=== PATIENT | male | born 1940 | race Two or more races ===

== ENCOUNTER 2023-05-04 21:43 | Observation (INO) ==
[2023-05-04 22:52] LABS: BASOPHILS # (AUTO) 0.1 K/uL (0-0.2); BASOPHILS % (AUTO) 0.6 % (0.0-3.0); EOSINOPHILS # (AUTO) 0.3 K/ul (0.0-0.7); HEMATOCRIT 51.7 % (42.0-52.0); HEMOGLOBIN 16.3 g/dl (14.0-18.0); IMMATURE GRANULOCYTE # (AUTO) 0.2 (0.0-1.0); IMMATURE GRANULOCYTE % (AUTO) 1.7 % (0.0-5.0); LYMPHOCYTES # (AUTO) 1.1 K/uL (0.60-3.4); LYMPHOCYTES % (AUTO) 11.7 (10.0-50.0); MEAN CORPUSCULAR HEMOGLOBIN 30.2 pg (27.0-31.0); MEAN CORPUSCULAR HGB CONC 31.5 (31.8-35.4); MEAN CORPUSCULAR VOLUME 95.7 fl (80.0-94.0); MONOCYTES % (AUTO) 10.6 (0-10); NEUTROPHILS # (AUTO) 6.5 K/ul (2.0-6.9); NEUTROPHILS % (AUTO) 72.4 % (42.2-75.2); PLATELET COUNT 224 10^3/uL (140-440); RDW COEFFICIENT OF VARIATION 14.1 % (11.6-14.8); WHITE BLOOD COUNT 8.98 K/ul (4.2-10.2)
[2023-05-04 23:08] LABS: ALBUMIN 3.92 g/dL (3.5-5.0); ALKALINE PHOSPHATASE 145.4 U/L (56-119); ASPARTATE AMINO TRANSFERASE 43.8 U/L (17-59); BILIRUBIN,TOTAL 0.91 mg/dL (0.2-1.3); BLOOD UREA NITROGEN 15.5 mg/dL (9-20); CALCIUM 9.4 mg/dL (8.4-10.2); CARBON DIOXIDE 26.9 mmol/L (22-30.0); CHLORIDE 104.7 mmol/L (98-107); CREATININE 0.86 mg/dL (0.60-1.10); GLUCOSE 99.7 mg/dL (74-106); POTASSIUM 4.86 mmol/L (3.5-5.1); SODIUM 138.6 mmol/L (134.5-145); TOTAL PROTEIN 7.29 g/dL (6.3-8.2)
--- NOTE | 2023-05-04 23:36 | DI ---
EXAM: FRONTAL VIEW OF THE CHEST. HISTORY: Altered mental status. COMPARISON: Chest radiograph 05/01/2023. FINDINGS: Normal heart size. Unchanged opacities at the left lung base and mild blunting of the left costophrenic sulcus. Chronic coarsening of the interstitial markings appears unchanged. No visible pneumothorax Diffuse osseous demineralization. Multilevel degenerative spondylosis and degenerative changes of maida th shoulders. IMPRESSION: Stable small left pleural effusion and left basilar atelectasis versus pneumonia.
--- NOTE | 2023-05-04 23:40 | CT ---
EXAM: CT OF THE CERVICAL SPINE WITHOUT CONTRAST TECHNIQUE: Noncontrast CT of the cervical spine performed with multiplanar reformats. HISTORY: Trauma. COMPARISON: None. FINDINGS: No acute fracture or traumatic malalignment. Diffuse osseous demineralization. Diffuse idiopathic skeletal hyperostosis. Multilevel degenerative changes. Cerumen in the external auditory canals bilaterally. Small amount of secretions in the trachea. No apical pneumothorax. Emphysema and scarring in the lungs. IMPRESSION: No fracture of the cervical spine. All CT scans are performed using dose optimization techniques as appropriate to the performed exam an d include at least one of the following: Automated exposure control, adjustment of the mA and/or kV according t o size, and the use of iterative reconstruction technique.
--- NOTE | 2023-05-04 23:44 | CT ---
EXAM: CT HEAD WITHOUT CONTRAST TECHNIQUE: Noncontrast CT of the head with multiple reformats. HISTORY: Trauma. COMPARISON: CT head 05/01/2023. FINDINGS: No evidence of acute infarction, hemorrhage, or mass. Moderate brain volume loss. Mild chronic microvascular changes white matter. Atherosclerotic calcifications of the carotid siphons. No brain herniation. Patent basilar cisterns. Ventricles are proportional to brain volume. No acute osseous abnormality. Mild mucosal changes in the paranasal sinuses. Orbits are unremarkable. IMPRESSION: No acute intracranial abnormality. All CT scans are performed using dose optimization techniques as appropriate to the performed exam an d include at least one of the following: Automated exposure control, adjustment of the mA and/or kV according t o size, and the use of iterative reconstruction technique.
--- NOTE | 2023-05-05 00:05 | ED.PDOC ---
General ED Provider: Dr. NATALIE PEREIRA MD Chief Complaint: Fall Stated Complaint: HPI: Found on the floor next to his bed tonight. He also fell a few days ago and nursing staff reported he's been more confused than usual. He is less talkative and he was ambulating with his walker 3-4 weeks ago. He have been known to order pizza to his room in the recent past. No fever. No cough or vomiting. Hasn't complained of much pain. [facility] at [facility] reports a history of COPD, dementia, PVD, psoriasis, depression and venous insufficiency. He was seen on May 02 at urology office and Stiles been in place for 2-3 days. She wasn't sure if he came back from the office with the Stiles. Staff did tried to call his next of kin and no answer. He is DNR. Staff also reports noted hematuria in his catheter bag. Time Seen by Provider: 05/04/23 22:14 Mode of Arrival: Ambulance Information Source: Long-Term, EMT and Nurse Exam Limitations: Clinical condition and Dementia Seen Within Last 72 Hours for Same Complaint By: Clinic Nursing and Triage Documentation Reviewed and Agree: Yes What is Opioid Naive?: *Opioid Naive implies the patient is not already taking opioids or not chronically receiving opioids on a daily basis. *PRN dosing is not "usually" associated with tolerance. *Patients are at higher risk of over-sedation and aspiration. What is Opioid Tolerant?: *Opioid Tolerance implies less than the expected response to an opioid. *Acquired tolerance is defined by the patient taking 60mg of oral morphine daily (or equianalgesic dose of another opioid) for 1 week or more. *Often associated with chronic pain. *May take more than usual dose to achieve desired pain control. Review of Systems Review Of Systems Constitutional: Reports Malaise; Denies Chills or Fever Eyes: Denies Drainage or Decreased acuity Ears, Nose, Mouth, Throat: Denies Ear pain, Nose discharge or Throat pain Respiratory: Denies Cough or Shortness of Breath Cardiac: Denies Chest pain GI: Reports Poor appetite; Denies Abdominal pain or Vomiting : Reports Hematuria Musculoskeletal: Denies Back pain or Neck pain Skin: Reports No symptoms Neurological: Reports Cognitive dysfunction, Weakness and Other (Altered MS) [facility] Social History (Updated 05/05/23 @ 04:01 by MACARIO PERAZA) Smoking and tobacco status: Current every day smoker Physical Exam Physical Exam Appearance: Reports No pain distress and Thin; Denies Ill-appearing Ill-appearing: None Pain Distress: None Eyes: Reports DAK[place] and EOMI ENT: Reports Oropharynx normal and Dry mucosa Neck: Supple Respiratory: Reports Airway patent, Breath sounds equal, Breath sounds diminished and Crackles Cardiovascular: Reports RRR, Pulses normal and No murmur GI/: Reports Soft, Nontender, No masses, Bowel sounds normal and No Organomegaly Musculoskeletal: Reports ROM intact, No edema and No calf tenderness Skin: Reports Warm, Normal color and Pale Neurological: Reports Sensation intact, Motor intact and Alert to verbal Psychiatric: Reports Affect appropriate and Mood appropriate Interpretation EKG Interpretation EKG Interpretation By: ED Physician Time of EKG #1: 22:42 Rate: Normal Rhythm: Sinus Ectopy: None Mandan: NL Interpretation: RBBB, Abnormal EKG Radiology Interpretation Radiology Interpretation By: Radiologist Radiology Results: Negative Exam Interpreted: CXR and CT Scan Xray Comments: Neg CT scan of head and c-spine. CXR with unchanged opacity in the L lung Course Course 05/05/23 05:02 05/05/23 05:02 Orders, Labs, Meds: Lab Review 05/04/23 22:44 WBC 8.98 RBC 5.40 Hgb 16.3 Hct 51.7 MCV 95.7 H MCH 30.2 MCHC 31.5 L RDW Coeff of Sheila 14.1 Plt Count 224 Immature Gran % (Auto) 1.7 Neut % (Auto) 72.4 Lymph % (Auto) 11.7 [place] % (Auto) 10.6 H Eos % (Auto) 3.0 Baso % (Auto) 0.6 Neut # (Auto) 6.5 Lymph # (Auto) 1.1 [place] # (Auto) 1.0 Eos # (Auto) 0.3 Baso # (Auto) 0.1 Immature Gran # (Auto) 0.2 Sodium 138.6 Potassium 4.86 Chloride 104.7 Carbon Dioxide 26.9 Anion Gap 11.86 BUN 15.5 Creatinine 0.86 Estimated GFR (MDRD) 85.00 BUN/Creatinine Ratio 18.02 Glucose 99.7 Lactic Acid 2.68 H Calcium 9.40 Total Bilirubin 0.91 AST 43.8 ALT 36.0 Alkaline Phosphatase 145.4 H Total Protein 7.29 Albumin 3.92 Globulin 3.37 Albumin/Globulin Ratio 1.16 Procalcitonin 0.10 H Orders Category Date Time Status ADMIT OBSERVATION [PLACE PATIENT OBSERVATION] .TO ADMISSION 05/05/23 02:28 Active MEDSURG (MONITORED BED) EKG-(ED ONLY) Stat CARDIO 05/04/23 22:24 Completed ACTIVITY .BR with BRP CARE 05/05/23 02:30 Active INTAKE & OUTPUT Q8HR CARE 05/05/23 02:30 Active IP: INSERT SALINE LOCK ONCE CARE 05/05/23 02:30 Active TELEMETRY MONITORING TELE CARE 05/05/23 02:28 Active VITAL SIGNS Q8HR CARE 05/05/23 02:30 Completed SOFT LOW FIBER DIETARY 05/05/23 Breakfast Ordered CBC W/ AUTO DIFF DAILY@0600 LAB 05/05/23 05:02 Completed CBC W/ AUTO DIFF DAILY@0600 LAB 05/06/23 06:00 Ordered CBC W/ AUTO DIFF Stat LAB 05/04/23 22:44 Completed CMP [COMPREHENSIVE METABOLIC PANEL] Stat LAB 05/04/23 22:44 Completed COMPREHENSIVE METABOLIC PANEL DAILY@0600 LAB 05/05/23 05:02 Completed COMPREHENSIVE METABOLIC PANEL DAILY@0600 LAB 05/06/23 06:00 Ordered LACTIC ACID Stat LAB 05/04/23 22:44 Completed PROCALCITONIN Stat LAB 05/04/23 22:44 Completed Enoxaparin Sodium [Lovenox] Meds 05/05/23 09:00 Active 30 mg SUBCUT DAILY RESUSCITATION STATUS Routine OTHERS 05/05/23 02:30 Ordered CHEST, 1V AP ONLY Stat RADS 05/04/23 22:[address] CERVICAL SPINE W/O CONTRAST Stat RADS 05/04/23 22:[address] HEAD W/O CONTRAST Stat RADS 05/04/23 22:22 Completed Medications Generic Name Dose Route Start Last Admin Trade Name Freq PRN Reason Stop Dose Admin Acetaminophen 650 mg 05/05/23 02:44 Acetaminophen 325 Mg Tablet PO Q6HR PRN Pain Albuterol/Ipratropium 3 ml 05/05/23 02:34 Ipratropium/Albuterol Vial.Neb NEB Q6H PRN SOB Azithromycin 250 mg 05/05/23 03:00 05/05/23 03:20 Azithromycin 250 Mg Tablet PO 05/08/23 02:59 250 mg BEDTIME [place] Administration Bisacodyl 10 mg 05/05/23 02:34 Bisacodyl 10 Mg Supp.Rect RC PRN PRN Constipation Enoxaparin Sodium 30 mg 05/05/23 09:00 Enoxaparin Sodium 30 Mg/0.3 Ml Syr SUBCUT DAILY [place] Famotidine 20 mg 05/05/23 09:00 Famotidine 20 Mg Tablet PO DAILY [place] Lactated Ringer's 1,000 mls @ 75 mls/hr 05/05/23 02:32 05/05/23 03:20 Lactated Ringers IV 05/05/23 15:51 75 mls/hr .[id number] ONE Administration Tamsulosin HCl 0.4 mg 05/05/23 09:00 Tamsulosin Hcl 0.4 Mg Cap.Er.24h PO DAILY [place] Vital Signs: Temp Pulse Resp BP Pulse Ox 05/05/23 02:00 80 16 109/77 95 05/05/23 01:00 76 16 102/71 94 L 05/05/23 00:00 82 16 110/76 96 05/04/23 23:00 84 16 118/76 95 05/04/23 22:13 98.2 F 78 20 129/88 97 Physician Progress Note: []Patient remained calm. Call to [place] and no recent changes in medicine except for addition of Flomax early part of april. Obviously change in his alertness. He is on several drugs like paxil, Seroquel and trazadone , May need to back off the anti-psychotic Discharge Plan Discharge Patient Disposition: PLACED OBSERVATION Discharge Problem: Recurrent falls, Altered mental state Did you review [place] ARCADE ATTENDANT for ALL controlled substances?: Not Applicable ED Provider: NATALIE PEREIRA Condition: Stable Pavel Coma Scale [place] Coma Scale Response Scores: Best Response = 15 Comatose Client = 8 or Less Totally Unresponsive = 3
[2023-05-05] MEDS ORDERED: LACTATED RINGERS 1,000 ML IV ONE (02:32)
[2023-05-05] MEDS ORDERED: DUONEB NEB PRN (02:34)
[2023-05-05] MEDS ORDERED: DULCOLAX RC PRN ×2 (02:34→07:55)
[2023-05-05] MEDS ORDERED: TYLENOL PO PRN (02:44)
[2023-05-05] MEDS: ZITHROMAX PO SCH ×2 (03:20→20:44)
[2023-05-05 03:49] VITALS: BMI 23.8
[2023-05-05 05:30] LABS: BASOPHILS # (AUTO) 0.1 K/uL (0-0.2); BASOPHILS % (AUTO) 0.7 % (0.0-3.0); EOSINOPHILS # (AUTO) 0.4 K/ul (0.0-0.7); EOSINOPHILS % (AUTO) 4.6 % (0.0-7.0); IMMATURE GRANULOCYTE # (AUTO) 0.1 (0.0-1.0); IMMATURE GRANULOCYTE % (AUTO) 1.7 % (0.0-5.0); LYMPHOCYTES # (AUTO) 1.2 K/uL (0.60-3.4); LYMPHOCYTES % (AUTO) 14.5 (10.0-50.0); MEAN CORPUSCULAR HEMOGLOBIN 30.4 pg (27.0-31.0); MEAN CORPUSCULAR HGB CONC 31.9 (31.8-35.4); MEAN CORPUSCULAR VOLUME 95.3 fl (80.0-94.0); MONOCYTES % (AUTO) 12.7 (0-10); NEUTROPHILS # (AUTO) 5.3 K/ul (2.0-6.9); NEUTROPHILS % (AUTO) 65.8 % (42.2-75.2); PLATELET COUNT 211 10^3/uL (140-440); RDW COEFFICIENT OF VARIATION 14.1 % (11.6-14.8); RED BLOOD COUNT 4.93 10^6/ul (4.70-6.10); WHITE BLOOD COUNT 8.09 K/ul (4.2-10.2)
[2023-05-05 05:45] LABS: ALANINE AMINOTRANSFERASE 31.1 U/L (0-50); ALBUMIN 3.28 g/dL (3.5-5.0); ALKALINE PHOSPHATASE 123.3 U/L (56-119); ASPARTATE AMINO TRANSFERASE 32.4 U/L (17-59); BILIRUBIN,TOTAL 0.93 mg/dL (0.2-1.3); BLOOD UREA NITROGEN 14.5 mg/dL (9-20); CALCIUM 8.62 mg/dL (8.4-10.2); CARBON DIOXIDE 28.9 mmol/L (22-30.0); CREATININE 0.86 mg/dL (0.60-1.10); GLUCOSE 90.5 mg/dL (74-106); POTASSIUM 3.91 mmol/L (3.5-5.1); SODIUM 134.3 mmol/L (134.5-145); TOTAL PROTEIN 6.4 g/dL (6.3-8.2)
[2023-05-05] MEDS: PEPCID PO SCH (08:18)
[2023-05-05] MEDS: FLOMAX PO SCH (08:18)
[2023-05-05] MEDS: LOVENOX SUBCUT SCH (08:18)
[2023-05-05] MEDS ORDERED: PAXIL PO SCH ×2 (09:00)
[2023-05-05] MEDS: PAXIL PO SCH (09:03)
[2023-05-05 09:41] LABS: BILIRUBIN,URINE 1+ (NEGATIVE); CLARITY,URINE Clear (CLEAR); COLOR,URINE Amber (YELLOW); GLUCOSE, URINE (UA) Negative (NEGATIVE); KETONES,URINE Trace (NEGATIVE); LEUKOCYTE ESTERASE ,URINE Trace (NEGATIVE); NITRITE,URINE Negative (NEGATIVE); PH,URINE 5.5 (5-9); PROTEIN,URINE 3+ (NEGATIVE); URINE, BLOOD 3+ (NEGATIVE)
[2023-05-05 09:42] LABS: SQUAMOUS EPITHELIAL CELL,UR NOT PRESENT (0-5)
[2023-05-05 09:47] LABS: BACTERIA,URINE TRACE (NOT PRESENT); RENAL EPITHELIAL CELLS,URINE 0-2 (NOT PRESENT); URINE RBC, MICROSCOPIC 30-50 (0-2)
--- NOTE | 2023-05-05 12:27 | PCM ---
Date of Service Date Seen by Provider: 05/05/23 Time Seen by Provider: 09:15 Admit Day/Time Admission Date: 05/05/23 Admission Time: 02:28 Reason for Admission Chief Complaint: ALTERED MENTAL STATUS Hospital Provider Hospital Provider: Beth Stuart PA-C, [facility] History of Present Illness History of Present Illness: Patient is an 83 year [place] with pmhx of recurrent falls, venous insufficiency, psoriasis, LGEN, COPD, and dementia who presents to the ER will unwitnessed fall. Patient is wheelchair bound and has been having falls out of his wheelchair. He also has had a decline in his mentation overall. He recently had a barone catheter placed but hasn't followed up with urology outpatient yet. He was recently sent to [facility] for aggressive behaviors towards staff. Notes from the ED visit also mention he had had falls from his wheelchair as well. He was discharged home from the ER. ERP last night was concerned that his psych meds may be causing the change in his mental status. However after looking at his medication list from [place] he's been on paxil since 01/23, increased on 01/26, trazodone on 01/25, and seroquel was added in march. Flomax was recently added this past month. On my evaluation this morning patient has no complaints, states he feels great. Patient's nurse spoke via phone with his daughter and she states he hasn't been eating well, but otherwise he's been baseline. She hasn't seen his behavioral problems personally. Lactic and procal were elevated in ER. CXR showed atelectasis vs pna. CT head and c spine negative. Case Discussed With Case Discussed With: Patient's case was discussed with the ER Physicians, Dr. Arevalo. [facility] Social History Smoking and tobacco status: Current every day smoker Allergies Allergies Allergy/AdvReac Type Severity Reaction Status Date / Time No Known Allergies Allergy Verified 05/04/23 22:45 Current Medications Home Medications acetaminophen 650 mg tablet,extended release 650 mg PO Q6HR PRN pain 05/05/23 [History Confirmed 05/05/23 Last Taken Unknown] aluminum-mag hydroxide-simethicone 200 mg-200 mg-20 mg/5 mL oral susp 10 ml PO Q6H PRN indigestion/gas/heartburn 05/05/23 [History Confirmed 05/05/23 Last Taken Unknown] benztropine 0.5 mg tablet 1 mg PO BID 05/05/23 [History Confirmed 05/05/23 Last Taken 05/04/23] bisacodyl 10 mg rectal suppository 10 mg [place] PRN PRN constipation 05/05/23 [History Confirmed 05/05/23 Last Taken Unknown] cholecalciferol (vitamin D3) 25 mcg (1,000 unit) tablet 2,000 unit PO DAILY 05/05/23 [History Confirmed 05/05/23 Last Taken 05/04/23] famotidine 20 mg tablet 20 mg PO DAILY 05/05/23 [History Confirmed 05/05/23 Last Taken 05/04/23] ipratropium 0.5 mg-albuterol 3 mg (2.5 mg base)/3 mL nebulization soln 3 ml inhalation Q6H PRN shortness of breath or wheezing 05/05/23 [History Confirmed 05/05/23 Last Taken Unknown] loperamide 2 mg capsule (Anti-Diarrheal (loperamide)) 2 mg PO Q2H PRN loose stool 05/05/23 [History Confirmed 05/05/23 Last Taken Unknown] magnesium hydroxide 400 mg/5 mL oral suspension (Milk of Magnesia) 30 ml PO PRN PRN constipation 05/05/23 [History Confirmed 05/05/23 Last Taken Unknown] paroxetine HCl 10 mg tablet 10 mg PO QAM 05/05/23 [History Confirmed 05/05/23 Last Taken 05/04/23] paroxetine HCl 20 mg tablet 20 mg PO QAM 05/05/23 [History Confirmed 05/05/23 L ast Taken 05/04/23] quetiapine 25 mg tablet 25 mg PO .@HS 05/05/23 [History Confirmed 05/05/23 Last Taken 05/04/23] tamsulosin 0.4 mg capsule (Flomax) 0.4 mg PO DAILY 05/05/23 [History Confirmed 05/05/23 Last Taken 05/04/23] trazodone 50 mg tablet 50 mg PO .@HS 05/05/23 [History Confirmed 05/05/23 Last Taken 05/04/23] triamcinolone acetonide 0.1 % topical cream 1 applic topical BID 05/05/23 [Histo ry Confirmed 05/05/23 Last Taken 05/04/23] ciprofloxacin HCl 500 mg tablet (Cipro) 500 mg PO BID UTI #14 tabs 05/06/23 [Rx Last Taken Unknown] Home Acetaminophen (Acetaminophen 325 Mg Tablet) 650 mg PO Q6HR PRN PRN Reason: Pain Albuterol/Ipratropium (Ipratropium/Albuterol Vial.Neb) 3 ml NEB Q6H PRN PRN Reason: SOB Azithromycin (Azithromycin 250 Mg Tablet) 250 mg PO BEDTIME [place] Stop: 05/08/23 02:59 Last Admin: 05/05/23 20:44 Dose: 250 mg Benztropine Mesylate (Benztropine Mesylate 1 Mg Tablet) 1 mg PO BID [facility] Last Admin: 05/06/23 08:53 Dose: 1 mg Bisacodyl (Bisacodyl 10 Mg Supp.Rect) 10 mg RC DAILY PRN PRN Reason: CONSTIPATION Enoxaparin Sodium (Enoxaparin Sodium 30 Mg/0.3 Ml Syr) 30 mg SUBCUT DAILY [facility] Last Admin: 05/06/23 08:56 Dose: 30 mg Famotidine (Famotidine 20 Mg Tablet) 20 mg PO QDAC2 [facility] Last Admin: 05/06/23 05:19 Dose: 20 mg Paroxetine HCl (Paroxetine Hcl 20 Mg Tablet) 30 mg PO DAILY [facility] Last Admin: 05/06/23 08:54 Dose: 30 mg Quetiapine Fumarate (Quetiapine Fumarate 25 Mg Tablet) 25 mg PO BEDTIME [facility] Tamsulosin HCl (Tamsulosin Hcl 0.4 Mg Cap.Er.24h) 0.4 mg PO DAILY [facility] Last Admin: 05/06/23 08:53 Dose: 0.4 mg Trazodone HCl (Trazodone Hcl 50 Mg Tablet) 50 mg PO BEDTIME [facility] Discontinued Medications Bisacodyl (Bisacodyl 10 Mg Supp.Rect) 10 mg RC PRN PRN PRN Reason: Constipation Lactated Ringer's (Lactated Ringers) 1,000 mls @ 75 mls/hr IV .[id number] ONE Stop: 05/05/23 15:51 Last Infusion: 05/05/23 17:26 Dose: Infused Paroxetine HCl (Paroxetine Hcl 20 Mg Tablet) 10 mg PO DAILY [place] Paroxetine HCl (Paroxetine Hcl 20 Mg Tablet) 20 mg PO QAM [place] Opioid Naive vs. Tolerant What is Opioid Naive?: *Opioid Naive implies the patient is not already taking opioids or not chronically receiving opioids on a daily basis. *PRN dosing is not "usually" associated with tolerance. *Patients are at higher risk of over-sedation and aspiration. What is Opioid Tolerant?: *Opioid Tolerance implies less than the expected response to an opioid. *Acquired tolerance is defined by the patient taking 60mg of oral morphine daily (or equianalgesic dose of another opioid) for 1 week or more. *Often associated with chronic pain. *May take more than usual dose to achieve desired pain control. Review of Systems Constitutional: Reports Weakness Head: Reports Normocephalic and Atraumatic Neurological: Reports Other (+confused, falls from wheelchair ) Physical examination Most Recent Vital Signs: Most Recent Vital Signs Temperature 97.5 F L 05/05/23 09:39 Temperature Source Temporal Artery Scan 05/05/23 09:39 Temperature Source Infrared 05/04/23 22:13 Pulse Rate 92 05/05/23 09:39 Respiratory Rate 24 H 05/05/23 09:39 Blood Pressure 103/67 05/05/23 09:39 Blood Pressure Mean 79 05/05/23 09:39 Blood Pressure Left Arm 122/74 05/05/23 03:22 Blood Pressure Location Left Arm 05/05/23 09:39 Blood Pressure Position Supine 05/05/23 05:40 O2 Sat by Pulse Oximetry 95 05/05/23 09:39 Oxygen Delivery Method Room Air 05/05/23 12:00 Height 5 ft 8 in 05/05/23 10:09 Weight 156 lb 7 oz 05/05/23 10:09 Telemetry Type Remote Telemetry 05/05/23 07:00 Telemetry Monitoring Continues 05/05/23 07:00 Telemetry Heart Rate 82 05/05/23 07:00 EKG [place] Interval 0.14 05/05/23 07:00 EKG QRS Interval 0.06 05/05/23 07:00 Telemetry Strip Reading SR 05/05/23 07:00 Appearance: Positive No Apparent Distress and Other (+Alert, oriented to person only. ) Skin: Positive Rashes (+lesions noted to legs bilaterally, consistent with psoriasis. ) HEENT: Positive Normocephalic, Atraumatic and Oral Mucous Moist Neck: Positive Supple and Midline Trachea Chest/Lungs: Positive Clear to Auscultation Bilaterally; Negative Rales, Rhonci or Wheezes Heart: Positive RRR GI/: Positive Soft, Nontender, Bowel Sounds Normal and No Distention Extremities: Negative Edema Neurological: Positive Cranial Nerves Intact, Alert, Oriented (to person only ) and Other (+generalized weakness but no focal deficits noted. ) Psychiatric: Positive Other (+dementia, at baseline ); Negative Intact Memory, Good Short-Term Recall, Normal Judgement or Normal Insight Labs This Visit Labs This Visit: Labs This Visit 05/04/23 05/05/23 05/05/23 22:44 05:02 09:08 WBC 8.98 8.09 RBC 5.40 4.93 Hgb 16.3 15.0 Hct 51.7 47.0 MCV 95.7 H 95.3 H MCH 30.2 30.4 MCHC 31.5 L 31.9 RDW Coeff of Sheila 14.1 14.1 Plt Count 224 211 Immature Gran % (Auto) 1.7 1.7 Neut % (Auto) 72.4 65.8 Lymph % (Auto) 11.7 14.5 [place] % (Auto) 10.6 H 12.7 H Eos % (Auto) 3.0 4.6 Baso % (Auto) 0.6 0.7 Neut # (Auto) 6.5 5.3 Lymph # (Auto) 1.1 1.2 [place] # (Auto) 1.0 1.0 Eos # (Auto) 0.3 0.4 Baso # (Auto) 0.1 0.1 Immature Gran # (Auto) 0.2 0.1 Sodium 138.6 134.3 L Potassium 4.86 3.91 Chloride 104.7 102.0 Carbon Dioxide 26.9 28.9 Anion Gap 11.86 7.31 BUN 15.5 14.5 Creatinine 0.86 0.86 Estimated GFR (MDRD) 85.00 85.00 BUN/Creatinine Ratio 18.02 16.86 Glucose 99.7 90.5 Lactic Acid 2.68 H Calcium 9.40 8.62 Total Bilirubin 0.91 0.93 AST 43.8 32.4 ALT 36.0 31.1 Alkaline Phosphatase 145.4 H 123.3 H Total Protein 7.29 6.40 Albumin 3.92 3.28 L Globulin 3.37 3.12 Albumin/Globulin Ratio 1.16 1.05 Procalcitonin 0.10 H Urine Color Pallavi Urine Clarity Clear Urine pH 5.5 Ur Specific [place] >=1.030 Urine Protein 3+ H Urine Glucose (UA) Negative Urine Ketones Trace H Urine Blood 3+ H Urine Nitrite Negative Urine Bilirubin 1+ H Urine Urobilinogen 2.0 H Ur Leukocyte Esterase Trace H Urine Microscopic RBC 30-50 Urine Microscopic WBC 5-10 Ur Squamous Epith Cells Not present Ur Renal Epithelial Cell 0-2 Urine Bacteria Trace Imaging Imaging: EXAM: CT HEAD WITHOUT CONTRAST TECHNIQUE: Noncontrast CT of the head with multiple reformats. HISTORY: Trauma. COMPARISON: CT head 05/01/2023. FINDINGS: No evidence of acute infarction, hemorrhage, or mass. Moderate brain volume loss. Mild chronic microvascular changes white matter. Atherosclerotic calcifications of the carotid siphons. No brain herniation. Patent basilar cisterns. Ventricles are proportional to brain volume. No acute osseous abnormality. Mild mucosal changes in the paranasal sinuses. Orbits are unremarkable. IMPRESSION: No acute intracranial abnormality. EXAM: CT OF THE CERVICAL SPINE WITHOUT CONTRAST TECHNIQUE: Noncontrast CT of the cervical spine performed with multiplanar reformats. HISTORY: Trauma. COMPARISON: None. FINDINGS: No acute fracture or traumatic malalignment. Diffuse osseous demineralization. Diffuse idiopathic skeletal hyperostosis. Multilevel degenerative changes. Cerumen in the external auditory canals bilaterally. Small amount of secretions in the trachea. No apical pneumothorax. Emphysema and scarring in the lungs. IMPRESSION: No fracture of the cervical spine. EXAM: FRONTAL VIEW OF THE CHEST. HISTORY: Altered mental status. COMPARISON: Chest radiograph 05/01/2023. FINDINGS: Normal heart size. Unchanged opacities at the left lung base and mild blunting of the left costophrenic sulcus. Chronic coarsening of the interstitial markings appears unchanged. No visible pneumothorax Diffuse osseous demineralization. Multilevel degenerative spondylosis and degenerative changes of both shoulders. IMPRESSION: Stable small left pleural effusion and left basilar atelectasis versus pneumonia. Review Statement Review Statement: I have independently reviewed and interpreted the labs/EKGs/imaging that were ordered by the ER provider. I have reviewed all outside records that are available currently in our EMR including imaging/notes/labs from previous visits. Plan Plan: 1. AMS - Questionable reports from NH and ER on what patient's baseline is. Thought to be off from his normal demented baseline. Has been having falls out of his wheelchair. [place] to be at his baseline today. UA negative for acute UTI. CT head negative. 2. Questionable pneumonia - Pt is on zithromax, presumably for pneumonia, however unclear. CT chest ordered to evaluate for pna due to patient's elevated lactic and procal. Will adjust abx accordingly. 3. Behavior disorder - Pt had recent ER visit at [facility] for combative behavior. Pt has been cooperative here. No recent medication changes to explain changes in mentation. Cont to f/u outpatient. 4. BPH with hematuria - Barone and flomax. Unclear if hematuria was present prior to recent barone placement. However he does have an upcoming urology apt to follow up. PSA recently elevated. Dispo: Likely dc to [place] tomorrow. DVT Prophylaxis: Lovenox Time Spent: Greater than 80 minutes spent with patient, 50% of the time spent with this patient was devoted to counseling and coordination of care. [facility] minutes spent discussing advance care planning. DNR Admit to: Obs Discussed Plan of Care with Dr. Stephanie Beltran. Medications Medication Orders: Medications Ordered Category Date Time Status Acetaminophen [Tylenol] Meds 05/05/23 02:44 Active 650 mg PO Q6HR PRN Azithromycin [Zithromax] Meds 05/05/23 03:00 Active 250 mg PO BEDTIME Bisacodyl [Dulcolax] Meds 05/05/23 07:55 Active 10 mg RC DAILY PRN Enoxaparin Sodium [Lovenox] Meds 05/05/23 09:00 Active 30 mg SUBCUT DAILY Famotidine [Pepcid] Meds 05/05/23 09:00 Active 20 mg PO QDAC2 Ipratropium/Albuterol Neb [Duoneb] Meds 05/05/23 02:34 Active 3 ml NEB Q6H PRN Paroxetine HCl [Paxil] Meds 05/05/23 09:00 Active 30 mg PO DAILY Ringers Lactated Solution [Lactated Ringers] 1,000 ml Meds 05/05/23 02:32 Active IV 75 mls/hr Tamsulosin HCl [Flomax] Meds 05/05/23 09:00 Active 0.4 mg PO DAILY
--- NOTE | 2023-05-05 13:45 | CT ---
EXAM: CHEST CT WITHOUT CONTRAST HISTORY: Cough and shortness of breath. TECHNIQUE: CT acquisition of the chest from the thoracic inlet to the upper abdomen without IV contra st administration. 2-D coronal and sagittal reformatted images were obtained from the axial source i mages. IV Contrast: None. CT Dose Reduction Techniques Performed: Yes. COMPARISON: None. FINDINGS: No enlarged mediastinal, hilar, or axillary nodes are identified. Mild aneurysmal dilatation of the ascending aorta, maximum diameter 4.0 cm. Mild coronary artery calcifications. Heart size is normal . No significant pericardial fluid/thickening. No pleural fluid. Small hiatal hernia. Visualized portions of the upper abdomen included in this examination of the chest show several coars e calcifications of the pancreatic head, consistent with chronic pancreatitis. Mild haziness of the small bowel mesentery, only partially imaged, suggesting mesenteric panniculitis. Lung window images show moderate emphysema. Mild dependent atelectasis of both upper and lower lobes in the right middle lobe. No consolidation. 6 mm nodule adjacent the right minor fissure, probably a fissural lymph node of no clinical significance. No pneumothorax. Bone window images show no significant lytic or sclerotic bone lesions. IMPRESSION: 1. No acute findings in the chest. 2. Moderate emphysema. 3. Dependent atelectasis of both upper and lower lobes and the right middle lobe. 4. 4.0 cm aneurysmal dilatation of the ascending aorta. 5. Chronic pancreatitis. 6. Findings suggesting mesenteric panniculitis. All CT scans are performed using dose optimization techniques as appropriate to the performed exam an d include at least one of the following: Automated exposure control, adjustment of the mA and/or kV according t o size, and the use of iterative reconstruction technique.
[2023-05-06] MEDS: PEPCID PO SCH (05:19)
[2023-05-06 05:29] LABS: BASOPHILS # (AUTO) 0.1 K/uL (0-0.2); BASOPHILS % (AUTO) 0.6 % (0.0-3.0); EOSINOPHILS # (AUTO) 0.4 K/ul (0.0-0.7); EOSINOPHILS % (AUTO) 4.4 % (0.0-7.0); HEMATOCRIT 43.9 % (42.0-52.0); HEMOGLOBIN 14.1 g/dl (14.0-18.0); IMMATURE GRANULOCYTE # (AUTO) 0.1 (0.0-1.0); IMMATURE GRANULOCYTE % (AUTO) 1.5 % (0.0-5.0); LYMPHOCYTES # (AUTO) 1.2 K/uL (0.60-3.4); LYMPHOCYTES % (AUTO) 14.2 (10.0-50.0); MEAN CORPUSCULAR HEMOGLOBIN 30.4 pg (27.0-31.0); MEAN CORPUSCULAR HGB CONC 32.1 (31.8-35.4); MEAN CORPUSCULAR VOLUME 94.6 fl (80.0-94.0); MONOCYTES # (AUTO) 1.1 K/uL (0.4-2.0); MONOCYTES % (AUTO) 12.7 (0-10); NEUTROPHILS # (AUTO) 5.8 K/ul (2.0-6.9); NEUTROPHILS % (AUTO) 66.6 % (42.2-75.2); PLATELET COUNT 214 10^3/uL (140-440); RDW COEFFICIENT OF VARIATION 14.1 % (11.6-14.8); RED BLOOD COUNT 4.64 10^6/ul (4.70-6.10); WHITE BLOOD COUNT 8.66 K/ul (4.2-10.2)
[2023-05-06 05:43] LABS: ALANINE AMINOTRANSFERASE 30.7 U/L (0-50); ALBUMIN 3.06 g/dL (3.5-5.0); ALKALINE PHOSPHATASE 109.9 U/L (56-119); ASPARTATE AMINO TRANSFERASE 31.5 U/L (17-59); BILIRUBIN,TOTAL 0.64 mg/dL (0.2-1.3); BLOOD UREA NITROGEN 11.4 mg/dL (9-20); CALCIUM 8.47 mg/dL (8.4-10.2); CARBON DIOXIDE 24.5 mmol/L (22-30.0); CHLORIDE 104.5 mmol/L (98-107); CREATININE 0.83 mg/dL (0.60-1.10); GLUCOSE 89.9 mg/dL (74-106); POTASSIUM 3.66 mmol/L (3.5-5.1); SODIUM 133.9 mmol/L (134.5-145); TOTAL PROTEIN 5.9 g/dL (6.3-8.2)
[2023-05-06] MEDS: FLOMAX PO SCH (08:53)
[2023-05-06] MEDS: PAXIL PO SCH (08:54)
[2023-05-06] MEDS: LOVENOX SUBCUT SCH (08:56)
[2023-05-06] MEDS ORDERED: COGENTIN PO SCH (09:00)
[2023-05-06 09:54] VITALS: BP 109/72; PULSE 102; RESP 22; TEMP 97.8
--- NOTE | 2023-05-06 10:36 | DCSUM ---
Admission Date Admission Date: 05/05/23 Discharge Date Discharge Date: 05/06/23 Admission Diagnosis Admission Diagnosis: 1. AMS 2. Questionable pneumonia 3. Behavior disorder 4. BPH with hematuria Discharge Diagnosis Discharge Diagnosis: 1. AMS - resolved, at baseline 2. UTI 3. Questionable pneumonia - ruled out 4. Dementia 5. BPH with hematuria - f/u urology 6. Falls from wheelchair Hospital Provider Hospital [facility] Summary of History and Physical Summary of History and Physical: Patient is an 83 year old male from detention with pmhx of recurrent falls, venous insufficiency, psoriasis, GLEN, COPD, and dementia who presents to the ER will unwitnessed fall. Patient is wheelchair bound and has been having falls out of his wheelchair. He also has had a decline in his mentation overall. He recently had a barone catheter placed but hasn't followed up with urology outpatient yet. He was recently sent to [facility] for aggressive behaviors towards staff. Notes from the ED visit also mention he had had falls from his wheelchair as well. He was discharged home from the ER. ERP last night was concerned that his psych meds may be causing the change in his mental status. However after looking at his medication list from [place] he's been on paxil since 01/23, increased on 01/26, trazodone on 01/25, and seroquel was added in march. Flomax was recently added this past month. On my evaluation this morning patient has no complaints, states he feels great. Patient's nurse spoke via phone with his daughter and she states he hasn't been eating well, but otherwise he's been baseline. She hasn't seen his behavioral problems personally. Lactic and procal were elevated in ER. CXR showed atelectasis vs pna. CT head and c spine negative. Hospital Course Subjective: Patient CT chest did not show pneumonia. Stopped azithromycin. He has been baseline. Eating and drinking well. Mildly agitated this morning fumbling with his blankets. Labs unremarkable. Procal and lactic normal today. Vitals stable. Will discharge back to the detention on cipro for UTI, will f/u on culture and call facility if abx needs to be changed. F/u with urology as planned. Unable to reach daughter, but she called back and spoke with nurse. She's in agreement with plan of care. Appearance: Pleasant, No Apparent Distress and Alert HEENT: MMM CVS: No Murmur Abdomen: Soft, Non-Tender and No Distention Respiratory: No Accessory Muscle Use Extremities: No Edema Vital Signs: Most Recent Vital Signs Temperature 97.8 F 05/06/23 09:53 Temperature Source Tympanic 05/06/23 09:53 Temperature Source Infrared 05/04/23 22:13 Pulse Rate 102 H 05/06/23 09:53 Respiratory Rate 22 H 05/06/23 09:53 Blood Pressure 109/72 05/06/23 09:53 Blood Pressure Mean 84 05/06/23 09:53 Blood Pressure Left Arm 122/74 05/05/23 03:22 Blood Pressure Location Right Arm 05/06/23 09:53 Blood Pressure Position Sitting 05/06/23 09:53 O2 Sat by Pulse Oximetry 93 L 05/06/23 09:53 Oxygen Delivery Method Room Air 05/06/23 09:53 Height 5 ft 8 in 05/05/23 10:09 Weight 156 lb 7 oz 05/05/23 10:09 Telemetry Type Remote Telemetry 05/06/23 01:00 Telemetry Monitoring Continues 05/06/23 01:00 Telemetry Heart Rate 105 H 05/06/23 01:[address] Interval 0.19 05/06/23 01:00 EKG QRS Interval 0.11 H 05/06/23 01:00 Telemetry Strip Reading REFUSES 05/06/23 07:00 Imaging: EXAM: CT HEAD WITHOUT CONTRAST TECHNIQUE: Noncontrast CT of the head with multiple reformats. HISTORY: Trauma. COMPARISON: CT head 05/01/2023. FINDINGS: No evidence of acute infarction, hemorrhage, or mass. Moderate brain volume loss. Mild chronic microvascular changes white matter. Atherosclerotic calcifications of the carotid siphons. No brain herniation. Patent basilar cisterns. Ventricles are proportional to brain volume. No acute osseous abnormality. Mild mucosal changes in the paranasal sinuses. Orbits are unremarkable. IMPRESSION: No acute intracranial abnormality. EXAM: CT OF THE CERVICAL SPINE WITHOUT CONTRAST TECHNIQUE: Noncontrast CT of the cervical spine performed with multiplanar reformats. HISTORY: Trauma. COMPARISON: None. FINDINGS: No acute fracture or traumatic malalignment. Diffuse osseous demineralization. Diffuse idiopathic skeletal hyperostosis. Multilevel degenerative changes. Cerumen in the external auditory canals bilaterally. Small amount of secretions in the trachea. No apical pneumothorax. Emphysema and scarring in the lungs. IMPRESSION: No fracture of the cervical spine. EXAM: FRONTAL VIEW OF THE CHEST. HISTORY: Altered mental status. COMPARISON: Chest radiograph 05/01/2023. FINDINGS: Normal heart size. Unchanged opacities at the left lung base and mild blunting of the left costophrenic sulcus. Chronic coarsening of the interstitial markings appears unchanged. No visible pneumothorax Diffuse osseous demineralization. Multilevel degenerative spondylosis and degenerative changes of both shoulders. IMPRESSION: Stable small left pleural effusion and left basilar atelectasis versus pneumonia. Lab Results Last 24 Hours: 05/06/23 05:02 WBC 8.66 RBC 4.64 L Hgb 14.1 Hct 43.9 MCV 94.6 H MCH 30.4 MCHC 32.1 RDW Coeff of Sheila 14.1 Plt Count 214 Immature Gran % (Auto) 1.5 Neut % (Auto) 66.6 Lymph % (Auto) 14.2 Bledsoe % (Auto) 12.7 H Eos % (Auto) 4.4 Baso % (Auto) 0.6 Neut # (Auto) 5.8 Lymph # (Auto) 1.2 Bledsoe # (Auto) 1.1 Eos # (Auto) 0.4 Baso # (Auto) 0.1 Immature Gran # (Auto) 0.1 Sodium 133.9 L Potassium 3.66 Chloride 104.5 Carbon Dioxide 24.5 Anion Gap 8.56 BUN 11.4 Creatinine 0.83 Estimated GFR (MDRD) 88.00 BUN/Creatinine Ratio 13.73 Glucose 89.9 Lactic Acid 0.88 Calcium 8.47 Total Bilirubin 0.64 AST 31.5 ALT 30.7 Alkaline Phosphatase 109.9 Total Protein 5.90 L Albumin 3.06 L Globulin 2.84 Albumin/Globulin Ratio 1.07 Procalcitonin 0.05 Discharge Instructions Discharge Planning: Discharge Planning > [address] Stephanie Beltran. Discharge Medications: Medications at Discharge (Home Meds & RX) acetaminophen 650 mg tablet,extended release 650 mg PO Q6HR PRN pain 05/05/23 aluminum-mag hydroxide-simethicone 200 mg-200 mg-20 mg/5 mL oral susp 10 ml PO Q6H PRN indigestion/gas/heartburn 05/05/23 azithromycin 250 mg tablet 250 mg PO .@HS 05/05/23 benztropine 0.5 mg tablet 1 mg PO BID 05/05/23 bisacodyl 10 mg rectal suppository [address] PRN PRN constipation 05/05/23 cholecalciferol (vitamin D3) 25 mcg (1,000 unit) tablet 2,000 unit PO DAILY 05/05/23 famotidine 20 mg tablet 20 mg PO DAILY 05/05/23 ipratropium 0.5 mg-albuterol 3 mg (2.5 mg base)/3 mL nebulization soln 3 ml inhalation Q6H PRN shortness of breath or wheezing 05/05/23 loperamide 2 mg capsule (Anti-Diarrheal (loperamide)) 2 mg PO Q2H PRN loose stool 05/05/23 magnesium hydroxide 400 mg/5 mL oral suspension (Milk of Magnesia) 30 ml PO PRN PRN constipation 05/05/23 paroxetine HCl 10 mg tablet 10 mg PO QAM 05/05/23 paroxetine HCl 20 mg tablet 20 mg PO QAM 05/05/23 quetiapine 25 mg tablet 25 mg PO .@HS 05/05/23 tamsulosin 0.4 mg capsule (Flomax) 0.4 mg PO DAILY 05/05/23 trazodone 50 mg tablet 50 mg PO .@HS 05/05/23 triamcinolone acetonide 0.1 % topical cream 1 applic topical BID 05/05/23 Discharge Plan Discharge Discharge Orders: Discharge Patient (ONCE); Ordered 05/06/23 Ordered By: BETH STUART Activity Restrictions/Additional Instructions: DISCHARGE TO [facility] NEW MEDICATION: CIPRO DX: UTI, FALLS FROM WHEELCHAIR DIET: NORMAL ACTIVITY: TOLERATED, FALL PRECAUTIONS F/U WITH UROLOGY Instructions: Urinary Tract Infection in Men (GEN) Patient Disposition: TRANSFER SNF Prescriptions: New ciprofloxacin HCl [Cipro] 500 mg tablet 500 mg PO BID Qty: 14 0RF Continued acetaminophen 650 mg tablet extended release 650 mg PO Q6HR PRN (Reason: pain) alum-mag hydroxide-simeth 200-200-20 mg/5 mL suspension 10 ml PO Q6H PRN (Reason: indigestion/gas/heartburn) benztropine 0.5 mg tablet 1 mg PO BID bisacodyl 10 mg suppository [address] PRN PRN (Reason: constipation) Rx Instructions: insert 1 suppository rectally as needed for constipation. Administer 1 time if no results from MOM cholecalciferol (vitamin D3) 25 mcg (1,000 unit) tablet 2,000 unit PO DAILY famotidine 20 mg tablet 20 mg PO DAILY tamsulosin [Flomax] 0.4 mg capsule 0.4 mg PO DAILY ipratropium-albuterol 0.5 mg-3 mg(2.5 mg base)/3 mL solution for nebulization 3 ml inhalation Q6H PRN (Reason: shortness of breath or wheezing) loperamide [Anti-Diarrheal (loperamide)] 2 mg capsule 2 mg PO Q2H PRN (Reason: loose stool) Rx Instructions: Give 1 tab PO every 2 hrs PRN diarrhea - max 8 mg daily magnesium hydroxide [Milk of Magnesia] 400 mg/5 mL suspension 30 ml PO PRN PRN (Reason: constipation) Rx Instructions: Give 30ml PO as needed for constipation. may administer one time if no bowel movement for 3 days paroxetine HCl 10 mg tablet 10 mg PO QAM Rx Instructions: Give 1 tab PO in morning for behavioral disorder. Add with Paxil 20mg in AM paroxetine HCl 20 mg tablet 20 mg PO QAM Rx Instructions: Give 1 tab PO in morning quetiapine 25 mg tablet 25 mg PO .@HS trazodone 50 mg tablet 50 mg PO .@HS triamcinolone acetonide 0.1 % cream 1 applic TOPICAL BID Rx Instructions: Apply to arms, legs, & torso topically every AM and PM shift. Related to Psoriasis; wash skin with soap and water before application Discontinued azithromycin 250 mg tablet 250 mg PO .@HS Rx Instructions: Take 1 tab at bedtime for 4 days - start 05/02/23 End 05/07/23 Did you review [place] ROLLER STAINER for ALL controlled substances?: Not Applicable Discussed opioids are addictive and Narcan is available by prescription or from pharmacy.: No Condition: Stable
[2023-05-06] MEDS ORDERED: CIPRO PO ONE (11:18)
[2023-05-06] MEDS ORDERED: SEROQUEL PO SCH (21:00)
[2023-05-06] MEDS ORDERED: DESYREL PO SCH (21:00)
== END 2023-05-06 11:30 ==
LOC: MEDSURG B 21:43 → ED 21:43 → MEDSURG B 05-05 03:00
PROVIDERS: ADMIT Physician Assistant; ATTEND Hospitalist
DX: I73.9 Peripheral vascular disease, unspecified; F32.A Depression, unspecified; R91.8 Other nonspecific abnormal finding of lung field; F03.90 Unspecified dementia, unspecified severity, without behavioral disturbance, psychotic disturbance, mood disturbance, and anxiety; W05.0XXA Fall from non-moving wheelchair, initial encounter; F17.210 Nicotine dependence, cigarettes, uncomplicated; N40.1 Benign prostatic hyperplasia with lower urinary tract symptoms; L40.9 Psoriasis, unspecified; N39.0 Urinary tract infection, site not specified; G47.33 Obstructive sleep apnea (adult) (pediatric); R29.6 Repeated falls; Z99.3 Dependence on wheelchair; J44.9 Chronic obstructive pulmonary disease, unspecified; R41.82 Altered mental status, unspecified; Z96.0 Presence of urogenital implants

== ENCOUNTER 2023-06-27 05:10 | Inpatient (IN) ==
[2023-06-27 05:36] LABS: HEMATOCRIT 43.2 % (42.0-52.0); HEMOGLOBIN 13.4 g/dl (14.0-18.0); MEAN CORPUSCULAR HEMOGLOBIN 30.6 pg (27.0-31.0); MEAN CORPUSCULAR VOLUME 98.6 fl (80.0-94.0); PLATELET COUNT 195 10^3/uL (140-440); RDW COEFFICIENT OF VARIATION 15.5 % (11.6-14.8); RED BLOOD COUNT 4.38 10^6/ul (4.70-6.10); WHITE BLOOD COUNT 9.07 K/ul (4.2-10.2)
[2023-06-27] MEDS: ZOSYN 3.375 GM 3.375 GM in SODIUM CHLORIDE 100ML 100 ML IV ONE (05:40)
[2023-06-27] MEDS: SODIUM CHLORIDE 1,000 ML IV ONE (05:41)
--- NOTE | 2023-06-27 05:45 | DI ---
EXAM: PORTABLE CHEST HISTORY: Shortness of breath COMPARISON: Single-view chest 05/04/2023 FINDINGS / impression: The cardiomediastinal silhouette is stable. There is no consolidation or eff usion. Stable bibasilar reticular opacities. There are no acute osseous abnormalities. Degenerativ e changes noted about both shoulder girdles.
[2023-06-27 05:50] LABS: BILIRUBIN,URINE 1+ (NEGATIVE); CLARITY,URINE Clear (CLEAR); COLOR,URINE Yellow (YELLOW); GLUCOSE, URINE (UA) Negative (NEGATIVE); KETONES,URINE Trace (NEGATIVE); LEUKOCYTE ESTERASE ,URINE 3+ (NEGATIVE); NITRITE,URINE Positive (NEGATIVE); PH,URINE 5.5 (5-9); PROTEIN,URINE 2+ (NEGATIVE); URINE, BLOOD 3+ (NEGATIVE)
[2023-06-27 05:52] LABS: ALBUMIN 2.97 g/dL (3.5-5.0); ALKALINE PHOSPHATASE 95.1 U/L (56-119); ASPARTATE AMINO TRANSFERASE 115.5 U/L (17-59); BILIRUBIN,TOTAL 0.99 mg/dL (0.2-1.3); BLOOD UREA NITROGEN 21.1 mg/dL (9-20); CALCIUM 8.63 mg/dL (8.4-10.2); CHLORIDE 105.2 mmol/L (98-107); CREATININE 1.13 mg/dL (0.60-1.10); GLUCOSE 102.5 mg/dL (74-106); POTASSIUM 3.95 mmol/L (3.5-5.1); TOTAL PROTEIN 6.45 g/dL (6.3-8.2)
[2023-06-27 05:54] LABS: SQUAMOUS EPITHELIAL CELL,UR NOT PRESENT (0-5)
[2023-06-27 05:56] LABS: ANISOCYTOSIS NOT PRESENT (NOT PRESENT)
[2023-06-27 05:58] LABS: ALANINE AMINOTRANSFERASE 56.3 U/L (0-50)
[2023-06-27 06:02] LABS: TROPONIN I < 0.012 ng/ml (0.0000-0.120)
[2023-06-27] MEDS: DUONEB NEB STA (06:03)
--- NOTE | 2023-06-27 06:03 | ED.PDOC ---
General ED Provider: Dr. FE GUERRA DO Chief Complaint: Respiratory Complaint Stated Complaint: 83-year-old male presents from local intermediate with shortness of breath. Apparently the patient had a chest x-ray done yesterday that demonstrated concern for some perihilar consolidations suspicious for pneumonia. No specific treatment was instituted after this finding, and late this evening/early this morning he was noted to have increased work of breathing and audible gurgling type respirations. EMS arrived and the intermediate had him on a nasal cannula that was blowing into his mouth and his oxygen saturations were 85 to 88%. EMS placed him on a BiPAP that successfully increased his oxygen saturations. Patient apparently did try and pull at the mask quite a bit however. No other therapeutics were given in route. No reported recent illness or fever. Patient has a history of COPD, dementia, hypertension. No reported history of heart failure. Time Seen by Provider: 06/27/23 05:22 Information Source: [facility] Primary Care Provider: BERNADETTE KILGORE Nursing and Triage Documentation Reviewed and Agree: Yes What is Opioid Naive?: *Opioid Naive implies the patient is not already taking opioids or not chronically receiving opioids on a daily basis. *PRN dosing is not "usually" associated with tolerance. *Patients are at higher risk of over-sedation and aspiration. What is Opioid Tolerant?: *Opioid Tolerance implies less than the expected response to an opioid. *Acquired tolerance is defined by the patient taking 60mg of oral morphine daily (or equianalgesic dose of another opioid) for 1 week or more. *Often associated with chronic pain. *May take more than usual dose to achieve desired pain control. Review of Systems Review Of Systems Constitutional: Reports No symptoms All Other Systems: Reviewed and Negative COUNT INCLUDES THE [facility] Social History Smoking and tobacco status: Current every day smoker Physical Exam Physical Exam Appearance: Reports Ill-appearing, No pain distress, Thin and Cachectic Ill-appearing: Moderate Eyes: Reports [place], EOMI and Conjunctiva clear ENT: Reports Nose normal, Oropharynx normal (Stick yellow to white sputum in the posterior oropharynx. Suctioned by me. This improved his audible breath sounds significantly) and Dry mucosa Neck: Supple Respiratory: Reports Airway patent and Breath sounds diminished; Denies Breath sounds clear (Audible gurgling in the upper airway. Improved with suctioning. Breath sounds diminished globally otherwise) or Respirations nonlabored (Some accessory muscle use) Cardiovascular: Reports Pulses normal; Denies RRR (Tachycardia) GI/: Reports Soft and Nontender Musculoskeletal: Reports Normal strength and No edema Skin: Reports Warm, Dry and Normal color Neurological: Reports Sensation intact and Motor intact Psychiatric: Reports Anxious Interpretation EKG Interpretation EKG Interpretation By: ED Physician Time of EKG #1: 05:30 Rate: Tachy Rhythm: Sinus Ectopy: None [place]: NL ST Segment: Other (Nonspecific. No obvious elevation or depression) Interpretation: No acute ischemia readily evident Radiology Interpretation Radiology Interpretation By: Radiologist Radiology Results: Negative Exam Interpreted: Portable CXR Xray Comments: No consolidations noted. Critical Care Note Critical Care Note Total Critical Care Time (mins): 100 Comments: Critical patient due to sepsis, influenza. Constant cardiac monitoring. Multiple bedside reassessments. Following cardiac output measures. Antibiotics, fluid bolus, airway management. Independent of any procedures. Course Course 06/27/23 05:40 06/27/23 05:40 Orders, Labs, Meds: Lab Review 06/27/23 06/27/23 05:24 05:40 WBC 9.07 RBC 4.38 L Hgb 13.4 L Hct 43.2 MCV 98.6 H MCH 30.6 MCHC 31.0 L RDW Coeff of Sheila 15.5 H Plt Count 195 Neutrophils % (Manual) 56.0 Band Neutrophils % 4.0 Lymphocytes % (Manual) 26.0 Monocytes % (Manual) 13.0 H Metamyelocytes % 1.0 Anisocytosis Not present Puncture Site Rv Base Excess -0.5 O2 Saturation 42.2 L ABG pH 7.36 ABG pCO2 44.0 ABG pO2 25.0 L* ABG HCO3 24.9 ABG Total CO2 26.3 H Stefan Test Pos Hemoglobin 1.4 Oxyhemoglobin 32.5 L Carboxyhemoglobin 2.2 H Total Hemoglobin 14.3 O2 Delivery Device Venti mask Oxygen Liter Flow 14.00 FiO2 % 55.0 Sodium 137.0 Potassium 3.95 Chloride 105.2 Carbon Dioxide 23.0 Anion Gap 12.75 BUN 21.1 H Creatinine 1.13 H Estimated GFR (MDRD) 62.00 BUN/Creatinine Ratio 18.67 Glucose 102.5 Lactic Acid 3.23 H Calcium 8.63 Magnesium 2.01 Total Bilirubin 0.99 AST 115.5 H ALT 56.3 H Alkaline Phosphatase 95.1 Total Creatine Kinase 24.6 L Troponin I < 0.012 Total Protein 6.45 Albumin 2.97 L Globulin 3.48 Albumin/Globulin Ratio 0.85 Urine Color Yellow Urine Clarity Clear Urine pH 5.5 Ur Specific [place] >=1.030 Urine Protein 2+ H Urine Glucose (UA) Negative Urine Ketones Trace H Urine Blood 3+ H Urine Nitrite Positive H Urine Bilirubin 1+ H Urine Urobilinogen 1.0 H Ur Leukocyte Esterase 3+ H Urine Microscopic RBC 20-30 Urine Microscopic WBC 20-30 Ur Squamous Epith Cells Not present Urine Bacteria 4+ Influ A Molecular Assay Positive by naat H Influ B Molecular Assay Negative by naat RSV Antigen Negative by naat SARS CoV-2 RNA Rapid AMAN Negative Orders Category Date Time Status ABG DRAW REQUEST Stat CARDIO 06/27/23 05:22 Completed EKG-(ED ONLY) Stat CARDIO 06/27/23 05:22 Completed NEBULIZER TREATMENT Stat CARDIO 06/27/23 05:50 Ordered OXYGEN [ED APPLY O2] .ONCE EMERGENCY 06/27/23 05:22 Active ABG COOX Stat LAB 06/27/23 05:40 Completed BLOOD CULTURE (ED ONLY) Stat LAB 06/27/23 05:48 Received CBC W/ AUTO DIFF Stat LAB 06/27/23 05:40 Completed CMP [COMPREHENSIVE METABOLIC PANEL] Stat LAB 06/27/23 05:40 Completed COVID [SARS COV-2 RNA RAPID AMAN] Stat LAB 06/27/23 05:24 Completed CREATINE KINASE Stat LAB 06/27/23 05:40 Completed FLU A & B MOLECULAR [FLU A/B MOLECULAR] Stat LAB 06/27/23 05:24 Completed LACTIC ACID Stat LAB 06/27/23 05:40 Completed MAGNESIUM Stat LAB 06/27/23 05:40 Completed MANUAL DIFFERENTIAL Stat LAB 06/27/23 05:40 Completed RSV Stat LAB 06/27/23 05:24 Completed TROPONIN I Stat LAB 06/27/23 05:40 Completed URINALYSIS C & S IF INDICATED Stat LAB 06/27/23 05:24 Completed URINE CULTURE Routine LAB 06/27/23 05:30 Received Acetylcysteine [Mucomyst 20% Neb] Meds 06/27/23 05:49 Discontinued 200 mg NEB ONCE STA Ipratropium/Albuterol Neb [Duoneb] Meds 06/27/23 06:05 Discontinued 3 ml NEB .STK-MED ONE Ipratropium/Albuterol Neb [Duoneb] Meds 06/27/23 05:49 Discontinued 6 ml NEB ONCE STA Piperacillin Sodium/Tazobactam [Zosyn 3.375 gm] 3.375 Meds 06/27/23 05:22 Discontinued gm 0.9 % Sodium Chloride [Sodium Chloride 100Ml] 100 ml IV ONCE Sodium Chloride 0.9% [Sodium Chloride] 1,000 ml Meds 06/27/23 05:28 Discontinued IV BOLUS Vancomycin/Water For Inj (Peg) [Vancomycin 1 Gram/200 Meds 06/27/23 06:07 Active ml Premix] 1 gm in 200 ml IV ONCE CHEST, 1V AP ONLY Stat RADS 06/27/23 05:17 Completed Medications Generic Name Dose Route Start Last Admin Trade Name Freq PRN Reason Stop Dose Admin VANCOMYCIN/WATER FOR INJ (PEG) 1 gm in 200 mls @ 200 mls/hr 06/27/23 06:07 06/27/23 06:27 Vancomycin 1 Gram/200 Ml Premix IV 06/27/23 07:06 200 mls/hr ONCE ONE Administration Discontinued Medications Generic Name Dose Route Start Last Admin Trade Name Freq PRN Reason Stop Dose Admin Acetylcysteine 200 mg 06/27/23 05:49 06/27/23 06:25 Acetylcysteine 200 Mg/Ml 4 Ml Neb.Vial NEB 06/27/23 05:50 200 mg ONCE STA Administration Albuterol/Ipratropium 6 ml 06/27/23 05:49 06/27/23 06:03 Ipratropium/Albuterol Vial.Neb NEB 06/27/23 05:50 6 ml ONCE STA Administration Piperacillin Sod/Tazobactam 100 mls @ 200 mls/hr 06/27/23 05:22 06/27/23 05:40 Sod 3.375 gm/ Sodium Chloride IV 06/27/23 05:51 200 mls/hr ONCE ONE Administration Sodium Chloride 1,000 mls @ 1,000 mls/hr 06/27/23 05:28 06/27/23 05:41 Sodium Chloride IV 06/27/23 06:27 1,000 mls/hr BOLUS ONE Administration Vital Signs: Temp Pulse Resp BP Pulse Ox O2 Flow Rate 03/04/24 05:21 98.2 F 116 H 40 H 122/63 89 L 4 06/27/23 05:12 98.2 F 114 H 40 H 122/63 72 L Discharge Plan Discharge Patient Disposition: ADMITTED INPATIENT Discharge Problem: Acute and chronic respiratory failure, Influenza, Dehydration Sepsis Qualifiers: Sepsis type: sepsis due to unspecified organism Sepsis acute organ dysfunction status: with acute organ dysfunction Severe sepsis acute organ dysfunction type: unspecified Severe sepsis shock status: without septic shock Qualified Code(s): A41.9 - Sepsis, unspecified organism; R65.20 - Severe sepsis without septic shock Prescriptions: No Action acetaminophen 650 mg tablet extended release 650 mg PO Q6HR PRN (Reason: pain) alum-mag hydroxide-simeth 200-200-20 mg/5 mL suspension 10 ml PO Q6H PRN (Reason: indigestion/gas/heartburn) benztropine 0.5 mg tablet 1 mg PO BID bisacodyl 10 mg suppository 10 mg [place] PRN PRN (Reason: constipation) Rx Instructions: insert 1 suppository rectally as needed for constipation. Administer 1 time if no results from MOM cholecalciferol (vitamin D3) 25 mcg (1,000 unit) tablet 2,000 unit PO DAILY famotidine 20 mg tablet 20 mg PO DAILY tamsulosin [Flomax] 0.4 mg capsule 0.4 mg PO DAILY ipratropium-albuterol 0.5 mg-3 mg(2.5 mg base)/3 mL solution for nebulization 3 ml inhalation Q6H PRN (Reason: shortness of breath or wheezing) loperamide [Anti-Diarrheal (loperamide)] 2 mg capsule 2 mg PO Q2H PRN (Reason: loose stool) Rx Instructions: Give 1 tab PO every 2 hrs PRN diarrhea - max 8 mg daily magnesium hydroxide [Milk of Magnesia] 400 mg/5 mL suspension 30 ml PO PRN PRN (Reason: constipation) Rx Instructions: Give 30ml PO as needed for constipation. may administer one time if no bowel movement for 3 days paroxetine HCl 10 mg tablet 10 mg PO QAM Rx Instructions: Give 1 tab PO in morning for behavioral disorder. Add with Paxil 20mg in AM paroxetine HCl 20 mg tablet 20 mg PO QAM Rx Instructions: Give 1 tab PO in morning quetiapine 25 mg tablet 25 mg PO .@HS trazodone 50 mg tablet 50 mg PO .@HS triamcinolone acetonide 0.1 % cream 1 applic TOPICAL BID Rx Instructions: Apply to arms, legs, & torso topically every AM and PM shift. Related to Psoriasis; wash skin with soap and water before application ciprofloxacin HCl [Cipro] 500 mg tablet 500 mg PO BID Qty: 14 0RF tamsulosin [Flomax] 0.4 mg capsule 0.4 mg PO DAILY mirtazapine 7.5 mg tablet 7.5 mg PO QHS Did you review [place] DENTIST ATTENDANT for ALL controlled substances?: Not Applicable ED Provider: FE GUERRA Condition: Stable Physician Progress Note: 83-year-old male presents from a local intermediate with increased work of breathing. Audible gurgling breath sounds improved significantly with suctioning. Sepsis workup immediately initiated. Will exercise caution with the 30 cc/kg bolus given the patient's age. I will give fluids but I am not ordering the initial bolus per sepsis protocol due to concern for patient's safety, however I will continue with the rest of the sepsis workup. He is currently afebrile. Will obtain ABG if able. Patient seems to be quite resistant to facemasks, airway adjuncts considered include Vapotherm, BiPAP, Venturi mask. If able to maintain oxygen saturations over 90 to 92% with more conservative adjuncts such as the Venturi mask, we will continue with this, otherwise patient will likely require the BiPAP. He does have a good respiratory drive and he has had several strong coughs while in the ER. Patient will likely require hospitalization. [] 0639: Patient positive for flu. Believe this patient is more dry than he is wet. He is tolerating fluids well currently. Will continue to gently hydrate. Maintaining his airway, will discuss with the oncoming physician for admission planning Patient meets sepsis criteria due to his tachycardia, lactic acidosis, respiratory source.
[2023-06-27 06:17] LABS: MOLECULAR FLU A POSITIVE BY NAAT (NEGATIVE); MOLECULAR FLU B NEGATIVE BY NAAT (NEGATIVE)
[2023-06-27 06:18] LABS: RSV MOLECULAR NEGATIVE BY NAAT (NEGATIVE); SARS COV-2 RNA RAPID NAAT NEGATIVE (NEGATIVE)
[2023-06-27 06:21] LABS: CREATINE KINASE 24.6 U/L (55-170); MAGNESIUM 2.01 mg/dL (1.6-2.3)
[2023-06-27] MEDS: DUONEB NEB ONE (06:23)
[2023-06-27 06:25] LABS: BACTERIA,URINE 4+ (NOT PRESENT); URINE RBC, MICROSCOPIC 20-30 (0-2); URINE WBC, MICROSCOPIC 20-30 (0-2)
[2023-06-27] MEDS: MUCOMYST 20% NEB NEB STA (06:25)
[2023-06-27] MEDS: VANCOMYCIN 1 GRAM/200 ML PREMIX 1 GM/200 ML BAG IV ONE (06:27)
[2023-06-27] MEDS: TAMIFLU CAPSULE PO SCH ×2 (09:35→17:59)
[2023-06-27 09:49] LABS: VBG HCO3 24.9 (22-26); VBG OXYGEN SATURATION 42.2 (60-80); VBG PH 7.36 (7.30-7.40)
[2023-06-27] MEDS: SOLU-MEDROL 125 MG IVP ONE (09:50)
--- NOTE | 2023-06-27 11:11 | PCM ---
Date of Service Date Seen by Provider: 06/27/23 Time Seen by Provider: 08:30 Admit Day/Time Admission Date: 06/27/23 Admission Time: 07:34 Reason for Admission Chief Complaint: acute resp failure; flu A; sepsis; uti; dehydratio Hospital Provider Hospital Provider: BETH STUART PA-C, [facility] Primary Care Physician Primary Care Physician: BERNADETTE KILGORE History of Present Illness History of Present Illness: Patient is a 83 year old male from halfway with pmhx of dementia, PVD, depression, COPD, BPH with chronic barone, who presents to the ER with worsening SOB. He was noted to have a change in condition, being lethargic, and lungs had adventitious sounds. He was noted to have O2 in the 80s. In the ER he was agitated and did not want to leave oxygen on. He was found to be Flu A + and have a UTI. He was given vanc and zosyn and a liter of fluids. He will be admitted to [facility]. [facility] limited by dementia. Case Discussed With Case Discussed With: Patient's case was discussed with the ER Physicians, Dr. Romo. [facility] Social History Smoking and tobacco status: Current every day smoker Allergies Allergies Allergy/AdvReac Type Severity Reaction Status Date / Time No Known Allergies Allergy Verified 05/04/23 22:45 Current Medications Home Medications acetaminophen 650 mg tablet,extended release 650 mg PO Q6HR PRN pain 05/05/23 [History Confirmed 06/27/23 Last Taken Unknown] aluminum-mag hydroxide-simethicone 200 mg-200 mg-20 mg/5 mL oral susp 10 ml PO Q6H PRN indigestion/gas/heartburn 05/05/23 [History Confirmed 06/27/23 Last Taken Unknown] benztropine 0.5 mg tablet 1 mg PO BID 05/05/23 [History Confirmed 06/27/23 Last Taken 06/26/23 20:00 0.5 mg] bisacodyl 10 mg rectal suppository 10 mg W[place] PRN PRN constipation 05/05/23 [History Confirmed 06/27/23 Last Taken Unknown] cholecalciferol (vitamin D3) 25 mcg (1,000 unit) tablet 2,000 unit PO DAILY 05/05/23 [History Confirmed 06/27/23 Last Taken 06/26/23 08:00 2,000 unit] famotidine 20 mg tablet 20 mg PO DAILY 05/05/23 [History Confirmed 06/27/23 Last Taken 06/26/23 06:00 20 mg] ipratropium 0.5 mg-albuterol 3 mg (2.5 mg base)/3 mL nebulization soln 3 ml inhalation Q6H PRN shortness of breath or wheezing 05/05/23 [History Confirmed 06/27/23 Last Taken Unknown] loperamide 2 mg capsule (Anti-Diarrheal (loperamide)) 2 mg PO Q2H PRN loose stool 05/05/23 [History Confirmed 06/27/23 Last Taken Unknown] magnesium hydroxide 400 mg/5 mL oral suspension (Milk of Magnesia) 30 ml PO PRN PRN constipation 05/05/23 [History Confirmed 06/27/23 Last Taken Unknown] paroxetine HCl 10 mg tablet 10 mg PO QAM 05/05/23 [History Confirmed 06/27/23 Last Taken 06/26/23 08:00 10 mg] paroxetine HCl 20 mg tablet 20 mg PO QAM 05/05/23 [History Confirmed 06/27/23 Last Taken 06/26/23] quetiapine 25 mg tablet 25 mg PO .@HS 05/05/23 [History Confirmed 06/27/23 Last Taken 06/26/23 20:00 25 mg] tamsulosin 0.4 mg capsule (Flomax) 0.4 mg PO DAILY 05/05/23 [History Confirmed 06/27/23 Last Taken 05/04/23] trazodone 50 mg tablet 50 mg PO .@HS 05/05/23 [History Confirmed 06/27/23 Last Taken 05/04/23] triamcinolone acetonide 0.1 % topical cream 1 applic topical BID 05/05/23 [History Confirmed 06/27/23 Last Taken 06/26/23 20:00 1 applic] ciprofloxacin HCl 500 mg tablet (Cipro) 500 mg PO BID UTI #14 tabs 05/06/23 [Rx Confirmed 06/27/23 Last Taken Unknown] azithromycin 250 mg tablet 250 mg PO DAILY 06/27/23 [History Confirmed 06/27/23 Last Taken 06/26/23 08:00 250 mg] mirtazapine 7.5 mg tablet 7.5 mg PO QHS 06/27/23 [History Confirmed 06/27/23 Last Taken 06/26/23 20:00 7.5 mg] tamsulosin 0.4 mg capsule (Flomax) 0.4 mg PO DAILY 06/27/23 [History Confirmed 06/27/23 Last Taken 06/26/23 08:00 0.4 mg] Home Albuterol/Ipratropium (Ipratropium/Albuterol Vial.Neb) 3 ml NEB RTQ6H [facility] Last Admin: 06/27/23 13:38 Dose: Not Given Enoxaparin Sodium (Enoxaparin Sodium 30 Mg/0.3 Ml Syr) 30 mg SUBCUT DAILY [facility] Levofloxacin/Dextrose (Levaquin 750 Mg/150 Ml D5w) 750 mg in 150 mls @ 100 mls/hr IV Q48HR [facility] Stop: 06/30/23 11:29 Lactated Ringer's (Lactated Ringers) 1,000 mls @ 100 mls/hr IV .Q10H [facility] Last Admin: 06/27/23 11:14 Dose: 100 mls/hr Piperacillin Sod/Tazobactam (Sod 4.5 gm/ Sodium Chloride) 100 mls @ 200 mls/hr IV Q8HR [facility] Stop: 06/30/23 20:59 Methylprednisolone Sodium Succinate (Methylprednisolone Sod Succ/Pf 40 Mg/Ml Vial) 40 mg IVP Q8HR [facility] Oseltamivir Phosphate (Oseltamivir Phosphate 30 Mg Capsule) 30 mg PO DAILY [place] Stop: 07/01/23 09:29 Last Admin: 06/27/23 09:35 Dose: 30 mg Discontinued Medications Acetylcysteine (Acetylcysteine 200 Mg/Ml 4 Ml Neb.Vial) 200 mg NEB ONCE STA Stop: 06/27/23 05:50 Last Admin: 06/27/23 06:25 Dose: 200 mg Albuterol/Ipratropium (Ipratropium/Albuterol Vial.Neb) 6 ml NEB ONCE STA Stop: 06/27/23 05:50 Last Admin: 06/27/23 06:03 Dose: 6 ml Enoxaparin Sodium (Enoxaparin Sodium 40 Mg/0.4 Ml Syr) 40 mg SUBCUT DAILY [facility] Piperacillin Sod/Tazobactam (Sod 3.375 gm/ Sodium Chloride) 100 mls @ 200 mls/hr IV ONCE ONE Stop: 06/27/23 05:51 Last Admin: 06/27/23 05:40 Dose: 200 mls/hr Sodium Chloride (Sodium Chloride) 1,000 mls @ 1,000 mls/hr IV BOLUS ONE Stop: 06/27/23 06:27 Last Admin: 06/27/23 05:41 Dose: 1,000 mls/hr VANCOMYCIN/WATER FOR INJ (PEG) (Vancomycin 1 Gram/200 Ml Premix) 1 gm in 200 mls @ 200 mls/hr IV ONCE ONE Stop: 06/27/23 07:06 Last Admin: 06/27/23 06:27 Dose: 200 mls/hr Methylprednisolone Sodium Succinate (Methylprednisolone Sod Succ/Pf 125 Mg/2 Ml Vial) 125 mg IVP ONCE ONE Stop: 06/27/23 08:47 Last Admin: 06/27/23 09:50 Dose: 125 mg Oseltamivir Phosphate (Oseltamivir Phosphate 30 Mg Capsule) 30 mg PO BID [place] Opioid Naive vs. Tolerant Does Patient Take Opioids?: No Is Patient Opioid Naive?: Yes What is Opioid Naive?: *Opioid Naive implies the patient is not already taking opioids or not chronically receiving opioids on a daily basis. *PRN dosing is not "usually" associated with tolerance. *Patients are at higher risk of over-sedation and aspiration. Is Patient Opioid Tolerant?: No What is Opioid Tolerant?: *Opioid Tolerance implies less than the expected response to an opioid. *Acquired tolerance is defined by the patient taking 60mg of oral morphine daily (or equianalgesic dose of another opioid) for 1 week or more. *Often associated with chronic pain. *May take more than usual dose to achieve desired pain control. Review of Systems Constitutional: Reports Fatigue and Weakness Head: Reports Normocephalic and Atraumatic Cardiovascular: Denies Chest pain Respiratory: Reports Cough and Shortness of air Gastrointestinal: Denies Nausea, Vomiting or Diarrhea Neurological: Reports Weakness Physical examination Most Recent Vital Signs: Most Recent Vital Signs Temperature 98.2 F 06/27/23 05:21 Temperature Source Temporal Artery Scan 06/27/23 05:21 Pulse Rate 116 H 06/27/23 05:21 Respiratory Rate 40 H 06/27/23 05:21 Blood Pressure 122/63 06/27/23 05:21 O2 Sat by Pulse Oximetry 91 L 06/27/23 10:00 Oxygen Delivery Method Venturi Mask 06/27/23 10:00 Oxygen Flow Rate 14 06/27/23 10:00 Fraction of Inspired Oxygen (FIO2) 55 06/27/23 10:00 Height 5 ft 9 in 06/27/23 05:12 Weight 62 lb 1 oz 06/27/23 05:12 Telemetry Heart Rate 105 H 05/06/23 01:00 Appearance: Positive Ill-Appearing and Thin Skin: Positive [place], Warm and Good Turgor; Negative Rashes HEENT: Positive Normocephalic and Atraumatic; Negative Oral Mucous Moist Neck: Positive Supple and Midline Trachea Chest/Lungs: Positive Rhonci, Wheezes and Other (+increased work of breathing, on my evaluation patient is more relaxed and not bothering his oximask. ) Heart: Positive Tachycardia GI/: Positive Soft, Nontender, Bowel Sounds Normal and No Distention Extremities: Negative Edema Neurological: Positive Alert, Disorinted (+dementia at baseline ) and Other (+generalized weakness, follows basic commands ) Labs This Visit Labs This Visit: Labs This Visit 06/27/23 06/27/23 06/27/23 05:24 05:40 08:48 WBC 9.07 RBC 4.38 L Hgb 13.4 L Hct 43.2 MCV 98.6 H MCH 30.6 MCHC 31.0 L RDW Coeff of Sheila 15.5 H Plt Count 195 Neutrophils % (Manual) 56.0 Band Neutrophils % 4.0 Lymphocytes % (Manual) 26.0 Monocytes % (Manual) 13.0 H Metamyelocytes % 1.0 Anisocytosis Not present Puncture Site Cancelled Base Excess Cancelled O2 Saturation Cancelled ABG pH Cancelled ABG pCO2 Cancelled ABG pO2 Cancelled ABG HCO3 Cancelled ABG Total CO2 Cancelled Stefan Test Cancelled VBG pH VBG pCO2 VBG pO2 VBG HCO3 VBG O2 Saturation Hemoglobin Cancelled Oxyhemoglobin Cancelled Carboxyhemoglobin Cancelled Total Hemoglobin Cancelled O2 Delivery Device Cancelled Oxygen Liter Flow Cancelled FiO2 % Cancelled Sodium 137.0 Potassium 3.95 Chloride 105.2 Carbon Dioxide 23.0 Anion Gap 12.75 BUN 21.1 H Creatinine 1.13 H Estimated GFR (MDRD) 62.00 BUN/Creatinine Ratio 18.67 Glucose 102.5 Lactic Acid 3.23 H 2.30 H Calcium 8.63 Magnesium 2.01 Total Bilirubin 0.99 AST 115.5 H ALT 56.3 H Alkaline Phosphatase 95.1 Total Creatine Kinase 24.6 L Troponin I < 0.012 Total Protein 6.45 Albumin 2.97 L Globulin 3.48 Albumin/Globulin Ratio 0.85 Urine Color Yellow Urine Clarity Clear Urine pH 5.5 Ur Specific [place] >=1.030 Urine Protein 2+ H Urine Glucose (UA) Negative Urine Ketones Trace H Urine Blood 3+ H Urine Nitrite Positive H Urine Bilirubin 1+ H Urine Urobilinogen 1.0 H Ur Leukocyte Esterase 3+ H Urine Microscopic RBC 20-30 Urine Microscopic WBC 20-30 Ur Squamous Epith Cells Not present Urine Bacteria 4+ Influ A Molecular Assay Positive by naat H Influ B Molecular Assay Negative by naat RSV Antigen Negative by naat SARS CoV-2 RNA Rapid AMAN Negative 06/27/23 09:48 WBC RBC Hgb Hct MCV MCH MCHC RDW Coeff of Sheila Plt Count Neutrophils % (Manual) Band Neutrophils % Lymphocytes % (Manual) Monocytes % (Manual) Metamyelocytes % Anisocytosis Puncture Site Base Excess O2 Saturation ABG pH ABG pCO2 ABG pO2 ABG HCO3 ABG Total CO2 Stefan Test VBG pH 7.36 VBG pCO2 44 VBG pO2 25 L VBG HCO3 24.9 VBG O2 Saturation 42.2 L Hemoglobin Oxyhemoglobin Carboxyhemoglobin Total Hemoglobin O2 Delivery Device Oxygen Liter Flow FiO2 % Sodium Potassium Chloride Carbon Dioxide Anion Gap BUN Creatinine Estimated GFR (MDRD) BUN/Creatinine Ratio Glucose Lactic Acid Calcium Magnesium Total Bilirubin AST ALT Alkaline Phosphatase Total Creatine Kinase Troponin I Total Protein Albumin Globulin Albumin/Globulin Ratio Urine Color Urine Clarity Urine pH Ur Specific [place] Urine Protein Urine Glucose (UA) Urine Ketones Urine Blood Urine Nitrite Urine Bilirubin Urine Urobilinogen Ur Leukocyte Esterase Urine Microscopic RBC Urine Microscopic WBC Ur Squamous Epith Cells Urine Bacteria Influ A Molecular Assay Influ B Molecular Assay RSV Antigen SARS CoV-2 RNA Rapid AMAN Imaging Imaging: EXAM: PORTABLE CHEST HISTORY: Shortness of breath COMPARISON: Single-view chest 05/04/2023 FINDINGS / impression: The cardiomediastinal silhouette is stable. There is no consolidation or effusion. Stable bibasilar reticular opacities. There are no acute osseous abnormalities. Degenerative changes noted about both shoulder girdles. Review Statement Review Statement: I have independently reviewed and interpreted the labs/EKGs/imaging that were ordered by the ER provider. I have reviewed all outside records that are available currently in our EMR including imaging/notes/labs from previous visits. Plan Plan: 1. Acute hypoxic respiratory failure in setting of influenza A - Tamiflu, duonebs, solumedrol, RT consult, O2 wean when able. CTA ordered to r/o PE. 2. Acute metabolic encephalopathy in setting of influenza A and hypoxia - Plan as above 3. Influenza A - Plan as above. Isolation precautions. 4. UTI - Levaquin ordered based on last culture. Has barone, check w/ NH on when it was last changed. 5. Sepsis - Met criteria upon arrival, LA elevated but improved. Cont fluids, abx. 6. BPH - Cont home meds 7. Dementia - Cont home meds 8. ANN MARIE, stage I - Fluids ordered. DVT Prophylaxis: Lovenox Time Spent: Greater than 80 minutes spent with patient, 50% of the time spent with this patient was devoted to counseling and coordination of care. [facility] minutes spent discussing advance care planning with daughter, Crys. She is not POA, he doesn't have one, but she is closet relative and involved in his care. Patient was historically DNR at the halfway but she is unsure of what she would like for him. She states it is possible she would want him to be intubated/cpr if needed. She became tearful while discus sing. Plan to revisit this with her soon. Admit to: Inpatient Discussed Plan of Care with Dr. Stephanie Beltran. Update: CTA showed aspiration pna. Consulted with pharmacy. Will add zosyn to regimen. Spoke with daughter Crys for lengthy amount of time discussing his condition and plan of care. Medications Medication Orders: Medications Ordered Category Date Time Status Ipratropium/Albuterol Neb [Duoneb] Meds 06/27/23 12:00 Ordered 3 ml NEB RTQ6H Levofloxacin/D5w [Levaquin 750 mg/150 ml D5w] Meds 06/27/23 11:30 Ordered 750 mg in 150 ml IV DAILY Methylprednisolone Sod Succ/Pf [Solu-Medrol 40 mg] Meds 06/27/23 17:00 Active 40 mg IVP Q8HR Oseltamivir Phosphate Cap [Tamiflu Capsule] Meds 06/27/23 09:30 Active 30 mg PO DAILY Ringers Lactated Solution [Lactated Ringers] 1,000 ml Meds 06/27/23 11:30 Ordered IV 100 mls/hr
[2023-06-27] MEDS: LACTATED RINGERS 1,000 ML IV SCH (11:14)
--- NOTE | 2023-06-27 12:59 | CT ---
EXAM: CT ANGIOGRAM CHEST WITH INTRAVENOUS CONTRAST 06/27/2023. MULTIPLANAR REFORMATTED IMAGES OBTAIN ED. MIP AND THREE-DIMENSIONAL RECONSTRUCTED IMAGES PROVIDED HISTORY: Hypoxia and tachycardia COMPARISON: 06/27/2023, 05/05/2023 FINDINGS: The heart size appears within normal limits. There is no pericardial effusion. No patholo gic appearing mediastinal, hilar or axillary lymphadenopathy. There are no pulmonary arterial filling defects to suggest pulmonary embolus. Diffuse pulmonary emphysema. Debris layers within the dependent aspect of the trachea. There is occlusion of multiple bilateral l ower lobe airways. Severe diffuse peribronchial thickening. Patchy bibasilar pulmonary infiltrates likely due to pneumonia. This combination of findings is suggestive of aspiration. Limited views of the upper abdomen shows no acute abnormality. IMPRESSION: 1. No pulmonary embolus. 2. Debris within the trachea. Occlusion multiple bilateral lower lobe airways. This is suggestive of aspiration. 3. Bibasilar infiltrates, right greater than left. This likely represents aspiration pneumonia 4. Severe diffuse peribronchial thickening. 5. Diffuse pulmonary emphysema. All CT scans are performed using dose optimization techniques as appropriate to the performed exam an d include at least one of the following: Automated exposure control, adjustment of the mA and/or kV according t o size, and the use of iterative reconstruction technique.
[2023-06-27] MEDS: LEVAQUIN 750 MG/150 ML D5W 750 MG/150 ML BAG IV SCH (13:30)
[2023-06-27] MEDS: DUONEB NEB SCH (13:38)
[2023-06-27 14:25] VITALS: BMI 19.2
[2023-06-27] MEDS: LOVENOX SUBCUT SCH ×2 (16:05→17:58)
[2023-06-27] MEDS: SOLU-MEDROL 40 MG IVP SCH (17:57)
[2023-06-27] MEDS: ZOSYN 4.5 GM 4.5 GM in SODIUM CHLORIDE 100ML 100 ML IV SCH (20:25)
[2023-06-28 06:43] LABS: BASOPHILS % (AUTO) 0.2 % (0.0-3.0); HEMATOCRIT 35.2 % (42.0-52.0); HEMOGLOBIN 11.1 g/dl (14.0-18.0); IMMATURE GRANULOCYTE # (AUTO) 0.1 (0.0-1.0); IMMATURE GRANULOCYTE % (AUTO) 2.2 % (0.0-5.0); LYMPHOCYTES # (AUTO) 0.7 K/uL (0.60-3.4); LYMPHOCYTES % (AUTO) 12.8 (10.0-50.0); MEAN CORPUSCULAR HGB CONC 31.5 (31.8-35.4); MEAN CORPUSCULAR VOLUME 98.3 fl (80.0-94.0); MONOCYTES # (AUTO) 0.4 K/uL (0.4-2.0); MONOCYTES % (AUTO) 6.5 (0-10); NEUTROPHILS # (AUTO) 4.2 K/ul (2.0-6.9); NEUTROPHILS % (AUTO) 78.3 % (42.2-75.2); PLATELET COUNT 179 10^3/uL (140-440); RDW COEFFICIENT OF VARIATION 15.9 % (11.6-14.8); RED BLOOD COUNT 3.58 10^6/ul (4.70-6.10); WHITE BLOOD COUNT 5.38 K/ul (4.2-10.2)
[2023-06-28 06:58] LABS: ALANINE AMINOTRANSFERASE 32.3 U/L (0-50); ALBUMIN 2.36 g/dL (3.5-5.0); ALKALINE PHOSPHATASE 69.1 U/L (56-119); ASPARTATE AMINO TRANSFERASE 65.5 U/L (17-59); BILIRUBIN,TOTAL 0.78 mg/dL (0.2-1.3); BLOOD UREA NITROGEN 23.1 mg/dL (9-20); CALCIUM 7.88 mg/dL (8.4-10.2); CARBON DIOXIDE 21.1 mmol/L (22-30.0); CHLORIDE 109.9 mmol/L (98-107); CREATININE 0.94 mg/dL (0.60-1.10); GLUCOSE 133.9 mg/dL (74-106); POTASSIUM 3.71 mmol/L (3.5-5.1); SODIUM 138.9 mmol/L (134.5-145); TOTAL PROTEIN 5.47 g/dL (6.3-8.2)
[2023-06-28] MEDS: LEVAQUIN 750 MG/150 ML D5W 750 MG/150 ML BAG IV SCH (09:05)
--- NOTE | 2023-06-28 09:50 | PCM.PROG ---
Date/Time Seen Date Seen by Provider: 06/28/23 Time Seen by Provider: 08:30 Provider Provider: BETH STUART [facility]-C, [facility] Chief Complaint Chief Complaint: acute resp failure; flu A; sepsis; uti; dehydratio Subjective Subjective: Patient is doing better. Has been weaned down to 4L overnight. Feels better today. More interactive. Awaiting ST consult. Currently NPO. Objective Appearance: Positive No Apparent Distress and Ill-Appearing Chest/Lungs: Positive Symmetrical With Equal Breath Sounds, Rhonci and Wheezes Heart: Positive RRR GI/: Positive Soft, Nontender and Bowel Sounds Normal Neurological: Positive Alert, Disorinted (baseline) and Other (+generalized weakness, moves all extremities equally, follows basic commands ) Vital Signs Vital Signs: Vital Signs: Last 24 Hours 06/27/23 10:00 06/27/23 11:21 06/27/23 11:45 Temperature 98.3 F Temperature Source Temporal Artery Scan Pulse Rate 103 H Pulse Rate [Apical] Respiratory Rate 28 H Blood Pressure Blood Pressure Mean Blood Pressure Right Arm 124/73 Blood Pressure Location Blood Pressure Position Supine O2 Sat by Pulse Oximetry 91 L 94 L Oxygen Delivery Method Venturi Mask Venturi Mask Oxygen Flow Rate 14 14 Fraction of Inspired Oxygen (FIO2) 55 55 Height 5 ft 9 in Weight 130 lb 4 oz 130 lb 4 oz Telemetry Type Telemetry Monitoring Telemetry Heart Rate Telemetry SPO2 EKG DE Interval EKG QRS Interval Telemetry Strip Reading 06/27/23 13:00 06/27/23 13:59 06/27/23 14:00 Temperature 97.3 F L Temperature Source Temporal Artery Scan Pulse Rate 58 L Pulse Rate [Apical] Respiratory Rate 17 Blood Pressure 105/67 129/74 Blood Pressure Mean 92 Blood Pressure Right Arm Blood Pressure Location Right Arm Blood Pressure Position Sitting O2 Sat by Pulse Oximetry 91 L 93 L Oxygen Delivery Method Venturi Mask Venturi Mask Oxygen Flow Rate 14 Fraction of Inspired Oxygen (FIO2) 55 Height Weight Telemetry Type Remote Telemetry Telemetry Monitoring Continues Telemetry Heart Rate 64 Telemetry SPO2 92 L EKG DE Interval 0.13 EKG QRS Interval 0.07 Telemetry Strip Reading NSR 06/27/23 19:00 06/27/23 19:45 06/27/23 20:00 Temperature Temperature Source Pulse Rate Pulse Rate [Apical] 60 Respiratory Rate 26 H Blood Pressure 105/59 L Blood Pressure Mean Blood Pressure Right Arm Blood Pressure Location Blood Pressure Position O2 Sat by Pulse Oximetry 99 Oxygen Delivery Method Venturi Mask Venturi Mask Oxygen Flow Rate 14 14 Fraction of Inspired Oxygen (FIO2) 55 55 Height Weight Telemetry Type Bedside Monitor Telemetry Monitoring Continues Telemetry Heart Rate 71 Telemetry SPO2 87 L EKG DE Interval 0.18 EKG QRS Interval 0.13 H Telemetry Strip Reading SR W/ BBB 06/27/23 21:34 06/28/23 01:00 06/28/23 04:15 Temperature 97.2 F L Temperature Source Pulse Rate 59 L Pulse Rate [Apical] Respiratory Rate 25 H Blood Pressure 94/61 Blood Pressure Mean 72 Blood Pressure Right Arm Blood Pressure Location Right Arm Blood Pressure Position Supine O2 Sat by Pulse Oximetry 93 L 98 Oxygen Delivery Method Venturi Mask Nasal Cannula Oxygen Flow Rate 14 4 Fraction of Inspired Oxygen (FIO2) 55 Height Weight Telemetry Type Bedside Monitor Telemetry Monitoring Continues Telemetry Heart Rate 56 L Telemetry SPO2 99 EKG DE Interval 0.18 EKG QRS Interval 0.09 Telemetry Strip Reading SB 06/28/23 05:46 06/28/23 07:00 06/28/23 07:23 Temperature 97.3 F L Temperature Source Temporal Artery Scan Pulse Rate 51 L 57 L Pulse Rate [Apical] Respiratory Rate 17 19 Blood Pressure 114/65 Blood Pressure Mean 81 Blood Pressure Right Arm Blood Pressure Location Right Arm Blood Pressure Position Supine O2 Sat by Pulse Oximetry 100 92 L Oxygen Delivery Method Nebulizer Treatment Nasal Cannula Oxygen Flow Rate 4 Fraction of Inspired Oxygen (FIO2) Height Weight Telemetry Type Bedside Monitor Telemetry Monitoring Continues Telemetry Heart Rate 63 Telemetry SPO2 88 L EKG DE Interval 0.18 EKG QRS Interval 0.08 Telemetry Strip Reading SR 06/28/23 08:00 06/28/23 09:22 Temperature Temperature Source Pulse Rate Pulse Rate [Apical] Respiratory Rate 26 H Blood Pressure Blood Pressure Mean Blood Pressure Right Arm Blood Pressure Location Blood Pressure Position O2 Sat by Pulse Oximetry Oxygen Delivery Method Nasal Cannula Oxygen Flow Rate 4 Fraction of Inspired Oxygen (FIO2) Height 5 ft 9 in Weight 130 lb 4 oz Telemetry Type Telemetry Monitoring Telemetry Heart Rate Telemetry SPO2 EKG DE Interval EKG QRS Interval Telemetry Strip Reading Lab Results Lab Results: Lab Results: Last 24 Hours 06/28/23 06/27/23 06/27/23 06:38 11:19 09:48 WBC 5.38 RBC 3.58 L Hgb 11.1 L Hct 35.2 L D MCV 98.3 H MCH 31.0 MCHC 31.5 L RDW Coeff of Sheila 15.9 H Plt Count 179 Immature Gran % (Auto) 2.2 Neut % (Auto) 78.3 H Lymph % (Auto) 12.8 Andrew % (Auto) 6.5 Eos % (Auto) 0.0 Baso % (Auto) 0.2 Neut # (Auto) 4.2 Lymph # (Auto) 0.7 Andrew # (Auto) 0.4 Eos # (Auto) 0.0 Baso # (Auto) 0.0 Immature Gran # (Auto) 0.1 Puncture Site Base Excess O2 Saturation ABG pH ABG pCO2 ABG pO2 ABG HCO3 ABG Total CO2 Stefan Test VBG pH 7.36 VBG pCO2 44 VBG pO2 25 L VBG HCO3 24.9 VBG O2 Saturation 42.2 L Hemoglobin Oxyhemoglobin Carboxyhemoglobin Total Hemoglobin O2 Delivery Device Oxygen Liter Flow FiO2 % Sodium 138.9 Potassium 3.71 Chloride 109.9 H Carbon Dioxide 21.1 L Anion Gap 11.61 BUN 23.1 H Creatinine 0.94 Estimated GFR (MDRD) 77.00 BUN/Creatinine Ratio 24.57 Glucose 133.9 H Calcium 7.88 L Total Bilirubin 0.78 AST 65.5 H D ALT 32.3 Alkaline Phosphatase 69.1 D Total Creatine Kinase 28.1 L Total Protein 5.47 L Albumin 2.36 L Globulin 3.11 Albumin/Globulin Ratio 0.75 Procalcitonin 0.66 H 06/27/23 05:40 WBC RBC Hgb Hct MCV MCH MCHC RDW Coeff of Sheila Plt Count Immature Gran % (Auto) Neut % (Auto) Lymph % (Auto) Andrew % (Auto) Eos % (Auto) Baso % (Auto) Neut # (Auto) Lymph # (Auto) Andrew # (Auto) Eos # (Auto) Baso # (Auto) Immature Gran # (Auto) Puncture Site Cancelled Base Excess Cancelled O2 Saturation Cancelled ABG pH Cancelled ABG pCO2 Cancelled ABG pO2 Cancelled ABG HCO3 Cancelled ABG Total CO2 Cancelled Stefan Test Cancelled VBG pH VBG pCO2 VBG pO2 VBG HCO3 VBG O2 Saturation Hemoglobin Cancelled Oxyhemoglobin Cancelled Carboxyhemoglobin Cancelled Total Hemoglobin Cancelled O2 Delivery Device Cancelled Oxygen Liter Flow Cancelled FiO2 % Cancelled Sodium Potassium Chloride Carbon Dioxide Anion Gap BUN Creatinine Estimated GFR (MDRD) BUN/Creatinine Ratio Glucose Calcium Total Bilirubin AST ALT Alkaline Phosphatase Total Creatine Kinase Total Protein Albumin Globulin Albumin/Globulin Ratio Procalcitonin Additional Comments Additional Comments: I have independently reviewed and interpreted the labs/EKGs/imaging ordered during this hospital stay. I have reviewed outside records that are available in our EMR that pertain to medical stay including imaging/notes/labs from previous visits. Active Medications Active Medications: Medications Generic Name Dose Route Start Last Admin Trade Name Freq PRN Reason Stop Dose Admin Albuterol/Ipratropium 3 ml 06/27/23 12:00 06/28/23 05:35 Ipratropium/Albuterol Vial.Neb NEB 3 ml RTQ6H [place] Administration Enoxaparin Sodium 30 mg 06/27/23 14:00 06/28/23 09:05 Enoxaparin Sodium 30 Mg/0.3 Ml Syr SUBCUT 30 mg DAILY [place] Administration Lactated Ringer's 1,000 mls @ 100 mls/hr 06/27/23 11:30 06/28/23 00:02 Lactated Ringers IV 100 mls/hr .Q10H [place] Administration Piperacillin Sod/Tazobactam 100 mls @ 200 mls/hr 06/28/23 12:00 Sod 4.5 gm/ Sodium Chloride IV 07/01/23 11:59 Q6HR [place] Levofloxacin/Dextrose 750 mg in 150 mls @ 100 mls/hr 06/28/23 09:00 06/28/23 09:05 Levaquin 750 Mg/150 Ml D5w IV 07/01/23 08:59 100 mls/hr DAILY [place] Administration Methylprednisolone Sodium Succinate 40 mg 06/27/23 17:00 06/28/23 05:01 Methylprednisolone Sod Succ/Pf 40 Mg/Ml Vial IVP 40 mg Q8HR [place] Administration Oseltamivir Phosphate 30 mg 06/28/23 09:00 Oseltamivir Phosphate 30 Mg Capsule PO 07/01/23 22:00 BID [place] Plan Plan: 1. Acute hypoxic respiratory failure in setting of influenza A and aspiration pneumonia - Tamiflu, duonebs, solumedrol, zosyn, RT consult, O2 wean when able. 2. Acute metabolic encephalopathy in setting of influenza A, aspiration pneumonia, and hypoxia - Plan as above 3. Influenza A - Plan as above. Isolation precautions. 4. Aspiration pneumonia - Plan as above. NPO until ST consult. Accuchecks q4hrs while npo. Will add d5 if needed. 5. UTI - Levaquin ordered based on last culture. Has barone, check w/ NH on when it was last changed. 6. Sepsis - Met criteria upon arrival, LA elevated but improved. Cont fluids, abx. 7. BPH - Cont home meds 8. Dementia - Cont home meds 9. ANN MARIE, stage I - Improved. Fluids ordered. DVT Prophylaxis: Lovenox Review Statement Review Statement: I have personally discussed and reviewed the patient's visit/currently labs/imaging/decision making with Dr. Beltran, my supervising attending. Greater that 50 minutes spent with patient, 50% of the time spent with this patient was devoted to counseling and coordination of care.
[2023-06-28] MEDS: ZOSYN 4.5 GM 4.5 GM in SODIUM CHLORIDE 100ML 100 ML IV SCH (11:39)
[2023-06-28] MEDS: TAMIFLU CAPSULE PO SCH (11:48)
[2023-06-28] MEDS: ZYPREXA IM ONE (13:58)
[2023-06-29 05:27] LABS: BASOPHILS % (AUTO) 0.1 % (0.0-3.0); HEMATOCRIT 36.5 % (42.0-52.0); HEMOGLOBIN 11.4 g/dl (14.0-18.0); IMMATURE GRANULOCYTE # (AUTO) 0.2 (0.0-1.0); IMMATURE GRANULOCYTE % (AUTO) 2.1 % (0.0-5.0); LYMPHOCYTES # (AUTO) 0.5 K/uL (0.60-3.4); LYMPHOCYTES % (AUTO) 5.7 (10.0-50.0); MEAN CORPUSCULAR HEMOGLOBIN 30.6 pg (27.0-31.0); MEAN CORPUSCULAR HGB CONC 31.2 (31.8-35.4); MEAN CORPUSCULAR VOLUME 98.1 fl (80.0-94.0); MONOCYTES # (AUTO) 0.4 K/uL (0.4-2.0); MONOCYTES % (AUTO) 4.6 (0-10); NEUTROPHILS # (AUTO) 8.2 K/ul (2.0-6.9); NEUTROPHILS % (AUTO) 87.5 % (42.2-75.2); PLATELET COUNT 221 10^3/uL (140-440); RDW COEFFICIENT OF VARIATION 15.9 % (11.6-14.8); RED BLOOD COUNT 3.72 10^6/ul (4.70-6.10); WHITE BLOOD COUNT 9.32 K/ul (4.2-10.2)
[2023-06-29 05:46] LABS: ALANINE AMINOTRANSFERASE 29.8 U/L (0-50); ALBUMIN 2.63 g/dL (3.5-5.0); ALKALINE PHOSPHATASE 68.4 U/L (56-119); ASPARTATE AMINO TRANSFERASE 50.6 U/L (17-59); BILIRUBIN,TOTAL 0.73 mg/dL (0.2-1.3); BLOOD UREA NITROGEN 19.3 mg/dL (9-20); CALCIUM 7.8 mg/dL (8.4-10.2); CHLORIDE 110.5 mmol/L (98-107); CREATININE 0.87 mg/dL (0.60-1.10); GLUCOSE 116.9 mg/dL (74-106); POTASSIUM 3.07 mmol/L (3.5-5.1); SODIUM 139.3 mmol/L (134.5-145); TOTAL PROTEIN 5.68 g/dL (6.3-8.2)
[2023-06-29] MEDS: K-DUR PO ONE (09:27)
[2023-06-29] MEDS: FLORASTOR PO SCH (09:28)
[2023-06-29] MEDS: DOXY-100 100 MG in SODIUM CHLORIDE 100ML 100 ML IV SCH (09:28)
--- NOTE | 2023-06-29 10:45 | PCM.PROG ---
Date/Time Seen Date Seen by Provider: 06/29/23 Time Seen by Provider: 08:40 Provider Provider: [facility] Chief Complaint Chief Complaint: acute resp failure; flu A; sepsis; uti; dehydratio Subjective Subjective: Patient very confused today. Becomes tearful when asking how he is doing. He had trouble swallowing his tamiflu this morninig. ST is working with him again today. Antibiotics tailored to cultures. Respiratory status is improving. Objective Appearance: Positive No Apparent Distress and Ill-Appearing Chest/Lungs: Positive Symmetrical With Equal Breath Sounds, Rhonci (improved ) and Wheezes (improved ) Heart: Positive RRR GI/: Positive Soft, Nontender and Bowel Sounds Normal Neurological: Positive Alert, Disorinted (baseline) and Other (+generalized weakness, moves all extremities equally, follows basic commands ) Vital Signs Vital Signs: Vital Signs: Last 24 Hours 06/28/23 13:00 06/28/23 14:00 06/28/23 14:00 Temperature Temperature Source Pulse Rate 62 Pulse Rate [Apical] Respiratory Rate 24 H Blood Pressure 91/59 L Blood Pressure Mean 69 Blood Pressure Location Right Arm Blood Pressure Position Sitting O2 Sat by Pulse Oximetry 94 L 96 Oxygen Delivery Method Nasal Cannula Nasal Cannula Oxygen Flow Rate 2 4 Telemetry Type Bedside Monitor Telemetry Monitoring Continues Telemetry Heart Rate 63 Telemetry SPO2 98 EKG OH Interval 0.12 EKG QRS Interval 0.06 Telemetry Strip Reading SR 06/28/23 18:00 06/28/23 19:00 06/28/23 19:35 Temperature Temperature Source Pulse Rate 67 Pulse Rate [Apical] Respiratory Rate 25 H 22 H Blood Pressure 117/67 Blood Pressure Mean 83 Blood Pressure Location Left Arm Blood Pressure Position Sitting O2 Sat by Pulse Oximetry 98 Oxygen Delivery Method Nasal Cannula Nasal Cannula Oxygen Flow Rate 4 4 Telemetry Type Bedside Monitor Telemetry Monitoring Continues Telemetry Heart Rate 67 Telemetry SPO2 98 EKG OH Interval 0.15 EKG QRS Interval 0.09 Telemetry Strip Reading SR 06/28/23 20:00 06/28/23 21:25 06/29/23 01:00 Temperature 96.8 F L Temperature Source Axillary Pulse Rate 68 Pulse Rate [Apical] Respiratory Rate 15 Blood Pressure 84/52 L Blood Pressure Mean 62 Blood Pressure Location Left Arm Blood Pressure Position Supine O2 Sat by Pulse Oximetry 100 92 L Oxygen Delivery Method Nasal Cannula Room Air Oxygen Flow Rate 4 Telemetry Type Bedside Monitor Telemetry Monitoring Continues Telemetry Heart Rate 68 Telemetry SPO2 98 EKG OH Interval 0.16 EKG QRS Interval 0.07 Telemetry Strip Reading NSR 06/29/23 02:08 06/29/23 05:06 06/29/23 05:32 Temperature 97.9 F Temperature Source Temporal Artery Scan Pulse Rate 69 73 Pulse Rate [Apical] Respiratory Rate 16 20 Blood Pressure 111/66 97/64 Blood Pressure Mean 81 75 Blood Pressure Location Left Arm Blood Pressure Position Supine O2 Sat by Pulse Oximetry 100 98 94 L Oxygen Delivery Method Nasal Cannula Nasal Cannula Nasal Cannula Oxygen Flow Rate 4 3 3 Telemetry Type Telemetry Monitoring Telemetry Heart Rate Telemetry SPO2 EKG OH Interval EKG QRS Interval Telemetry Strip Reading 06/29/23 07:00 06/29/23 08:00 06/29/23 10:00 Temperature Temperature Source Pulse Rate Pulse Rate [Apical] 68 Respiratory Rate 20 Blood Pressure Blood Pressure Mean Blood Pressure Location Blood Pressure Position O2 Sat by Pulse Oximetry 97 Oxygen Delivery Method Nasal Cannula Nasal Cannula Oxygen Flow Rate 3 3 Telemetry Type Remote Telemetry Telemetry Monitoring Continues Telemetry Heart Rate 69 Telemetry SPO2 99 EKG OH Interval 0.16 EKG QRS Interval 0.09 Telemetry Strip Reading SR 06/29/23 10:22 Temperature 97.6 F Temperature Source Tympanic Pulse Rate 72 Pulse Rate [Apical] Respiratory Rate 20 Blood Pressure 116/71 Blood Pressure Mean 86 Blood Pressure Location Left Arm Blood Pressure Position Sitting O2 Sat by Pulse Oximetry 99 Oxygen Delivery Method Nasal Cannula Oxygen Flow Rate 4 Telemetry Type Telemetry Monitoring Telemetry Heart Rate Telemetry SPO2 EKG OH Interval EKG QRS Interval Telemetry Strip Reading Lab Results Lab Results: Lab Results: Last 24 Hours 06/29/23 05:17 WBC 9.32 RBC 3.72 L Hgb 11.4 L Hct 36.5 L MCV 98.1 H MCH 30.6 MCHC 31.2 L RDW Coeff of Sheila 15.9 H Plt Count 221 Immature Gran % (Auto) 2.1 Neut % (Auto) 87.5 H Lymph % (Auto) 5.7 L [place] % (Auto) 4.6 Eos % (Auto) 0.0 Baso % (Auto) 0.1 Neut # (Auto) 8.2 H Lymph # (Auto) 0.5 L [place] # (Auto) 0.4 Eos # (Auto) 0.0 Baso # (Auto) 0.0 Immature Gran # (Auto) 0.2 Sodium 139.3 Potassium 3.07 L Chloride 110.5 H Carbon Dioxide 24.0 Anion Gap 7.87 BUN 19.3 Creatinine 0.87 Estimated GFR (MDRD) 84.00 BUN/Creatinine Ratio 22.18 Glucose 116.9 H Calcium 7.80 L Total Bilirubin 0.73 AST 50.6 ALT 29.8 Alkaline Phosphatase 68.4 Total Protein 5.68 L Albumin 2.63 L Globulin 3.05 Albumin/Globulin Ratio 0.86 Additional Comments Additional Comments: I have independently reviewed and interpreted the labs/EKGs/imaging ordered during this hospital stay. I have reviewed outside records that are available in our EMR that pertain to medical stay including imaging/notes/labs from previous visits. Active Medications Active Medications: Medications Generic Name Dose Route Start Last Admin Trade Name Freq PRN Reason Stop Dose Admin Albuterol/Ipratropium 3 ml 06/27/23 12:00 06/29/23 05:08 Ipratropium/Albuterol Vial.Neb NEB 3 ml RTQ6H [place] Administration Enoxaparin Sodium 30 mg 06/27/23 14:00 06/29/23 08:03 Enoxaparin Sodium 30 Mg/0.3 Ml Syr SUBCUT 30 mg DAILY [place] Administration Lactated Ringer's 1,000 mls @ 100 mls/hr 06/27/23 11:30 06/29/23 07:55 Lactated Ringers IV Not Given .Q10H [place] Doxycycline Hyclate 100 mg/ 100 mls @ 50 mls/hr 06/29/23 09:00 06/29/23 09:28 Sodium Chloride IV 07/02/23 08:59 50 mls/hr Q12HR [place] Administration Ertapenem 1 gm/ Sodium 50 mls @ 100 mls/hr 06/29/23 09:00 Chloride IV 07/04/23 08:59 DAILY [place] Methylprednisolone Sodium Succinate 40 mg 06/27/23 17:00 06/29/23 05:54 Methylprednisolone Sod Succ/Pf 40 Mg/Ml Vial IVP 40 mg Q8HR [place] Administration Oseltamivir Phosphate 30 mg 06/28/23 09:00 06/29/23 08:03 Oseltamivir Phosphate 30 Mg Capsule PO 07/01/23 22:00 30 mg BID [place] Administration Saccharomyces Boulardii 250 mg 06/29/23 09:00 06/29/23 09:28 Saccharomyces Boulardii 250 Mg Capsule PO 250 mg BID [place] Administration Plan Plan: 1. Acute hypoxic respiratory failure in setting of influenza A and aspiration pneumonia - Tamiflu, duonebs, solumedrol, zosyn changed to invanz, RT consult, O2 wean when able. 2. Acute metabolic encephalopathy in setting of influenza A, aspiration pneumonia, UTI and hypoxia - Plan as above 3. Influenza A - Plan as above. Isolation precautions. 4. Aspiration pneumonia - Plan as above. Diet per ST. Cont invanz and doxy. 5. UTI due to staph aureus and ESBL+ - D/c levaquin. Start invanz and doxy. Has barone, check w/ NH on when it was last changed. 6. Sepsis - Resolved. Met criteria upon arrival, LA elevated but improved. Cont fluids, abx. 7. BPH - Cont home meds 8. Dementia - Cont home meds 9. ANN MARIE, stage I - Improved. Fluids ordered. DVT Prophylaxis: Lovenox Dispo: Potential dc in next 1-2 days. Updated daughter Crys on plan of care. Review Statement Review Statement: I have personally discussed and reviewed the patient's visit/currently l abs/imaging/decision making with Dr. Beltran, my supervising attending. Greater that 50 minutes spent with patient, 50% of the time spent with this patient was devoted to counseling and coordination of care.
[2023-06-29] MEDS: INVANZ 1 GM in SODIUM CHLORIDE 50 ML IV SCH (11:33)
[2023-06-29] MEDS: MORPHINE 2 MG/ML SYRINGE IVP ONE (14:21)
[2023-06-30 05:41] VITALS: BP 124/82; PULSE 79; RESP 20; TEMP 97
[2023-06-30 07:51] LABS: BASOPHILS % (AUTO) 0.1 % (0.0-3.0); HEMATOCRIT 35.4 % (42.0-52.0); HEMOGLOBIN 11.2 g/dl (14.0-18.0); IMMATURE GRANULOCYTE # (AUTO) 0.2 (0.0-1.0); IMMATURE GRANULOCYTE % (AUTO) 1.8 % (0.0-5.0); LYMPHOCYTES # (AUTO) 0.5 K/uL (0.60-3.4); LYMPHOCYTES % (AUTO) 4.6 (10.0-50.0); MEAN CORPUSCULAR HEMOGLOBIN 30.9 pg (27.0-31.0); MEAN CORPUSCULAR HGB CONC 31.6 (31.8-35.4); MEAN CORPUSCULAR VOLUME 97.8 fl (80.0-94.0); MONOCYTES # (AUTO) 0.5 K/uL (0.4-2.0); MONOCYTES % (AUTO) 4.9 (0-10); NEUTROPHILS # (AUTO) 9.1 K/ul (2.0-6.9); NEUTROPHILS % (AUTO) 88.6 % (42.2-75.2); PLATELET COUNT 246 10^3/uL (140-440); RDW COEFFICIENT OF VARIATION 15.6 % (11.6-14.8); RED BLOOD COUNT 3.62 10^6/ul (4.70-6.10)
[2023-06-30 08:14] LABS: ALANINE AMINOTRANSFERASE 28.5 U/L (0-50); ALBUMIN 2.39 g/dL (3.5-5.0); ALKALINE PHOSPHATASE 61.7 U/L (56-119); ASPARTATE AMINO TRANSFERASE 37.4 U/L (17-59); BILIRUBIN,TOTAL 0.71 mg/dL (0.2-1.3); CALCIUM 7.54 mg/dL (8.4-10.2); CARBON DIOXIDE 25.1 mmol/L (22-30.0); CREATININE 0.69 mg/dL (0.60-1.10); GLUCOSE 112.2 mg/dL (74-106); SODIUM 136.9 mmol/L (134.5-145); TOTAL PROTEIN 5.26 g/dL (6.3-8.2)
[2023-06-30 08:19] LABS: POTASSIUM 3.43 mmol/L (3.5-5.1)
[2023-06-30] MEDS: K-DUR PO ONE (08:33)
--- NOTE | 2023-06-30 10:26 | DCSUM ---
Admission Date Admission Date: 06/27/23 Discharge Date Discharge Date: 06/30/23 Admission Diagnosis Admission Diagnosis: 1. Acute hypoxic respiratory failure in setting of influenza A and aspiration pneumonia 2. Acute metabolic encephalopathy in setting of influenza A, aspiration pneumonia, UTI and hypoxia 3. Influenza A 4. Aspiration pneumonia 5. UTI Discharge Diagnosis Discharge Diagnosis: 1. Acute hypoxic respiratory failure in setting of influenza A and aspiration pneumonia - Improved 2. Acute metabolic encephalopathy in setting of influenza A, aspiration pneumonia, UTI and hypoxia - Improved 3. Influenza A 4. Aspiration pneumonia 5. UTI due to staph aureus and ESBL+ e coli 6. Sepsis - Resolved. 7. BPH 8. Dementia 9. ANN MARIE, stage I - resolved Hospital Provider Hospital Provider[facility] Primary Care Physician Primary Care Physician: BERNADETTE KILGORE Summary of History and Physical Summary of History and Physical: Patient is a 83 year old male from residential with pmhx of dementia, PVD, depression, COPD, BPH with chronic barone, who presents to the ER with worsening SOB. He was noted to have a change in condition, being lethargic, and lungs had adventitious sounds. He was noted to have O2 in the 80s. In the ER he was agitated and did not want to leave oxygen on. He was found to be Flu A + and have a UTI. He was given vanc and zosyn and a liter of fluids. He will be admitted to [facility] limited by dementia. Hospital Course Subjective: Patient initially was in respiratory distress, requiring 14-15L, labored breathing, very adventitious lung sounds. CTA chest revealed significant asp iration pna. He was started on zosyn and also levaquin based on last urine culture. He was also started on renally dosed tamiflu for influenza. By the following day he had been weaned down to 4L, respiratory status improved. Urine culture ended up showing ESBL positive e coli and staph aureus. Abx changed to invanz and doxycycline based on this and to also cover his aspiration pna. He was weaned to 2L O2. Barone changed on 06/28. Patient's mentation felt to be at baseline. Will discharge on tamiflu for 3 more doses, prednisone x5 days, invanz IM 1 gm for 10 days, and doxycyline PO BID for 7 days, and probiotics. Recommend continued speech therapy. Patient stable at time of discharge. Spoke with patient's daughter multiple times during hospitalization. He was initially DNR but she changed to CPR/DNI upon admission. She was contemplating changing him to full code but this was never officially changed once his respiratory status improved. Would recommend revisiting this with her again and clarifying her wishes going forward. Appearance: No Apparent Distress and Alert HEENT: MMM CVS: No Murmur Abdomen: Soft, Non-Tender and No Distention Respiratory: Other (+rhonchi and wheezing much improved, non labored breathing) Extremities: No Edema Vital Signs: Most Recent Vital Signs Temperature 97.0 F L 06/30/23 05:40 Temperature Source Temporal Artery Scan 06/30/23 05:40 Temperature Source Temporal Artery Scan 06/27/23 05:21 Pulse Rate 79 06/30/23 05:40 Respiratory Rate 20 06/30/23 05:40 Blood Pressure 124/82 06/30/23 05:40 Blood Pressure Mean 96 06/30/23 05:40 Blood Pressure Right Arm 124/73 06/27/23 11:21 Blood Pressure Location Left Arm 06/30/23 05:40 Blood Pressure Position Supine 06/30/23 05:40 O2 Sat by Pulse Oximetry 92 L 06/30/23 05:40 Oxygen Delivery Method Nasal Cannula 06/30/23 08:00 Oxygen Flow Rate 1 06/30/23 05:40 Fraction of Inspired Oxygen (FIO2) 55 06/27/23 21:34 Height 5 ft 9 in 06/28/23 09:22 Weight 130 lb 4 oz 06/28/23 09:22 Telemetry Type Remote Telemetry 06/30/23 07:00 Telemetry Monitoring Continues 06/30/23 07:00 Irregular Telemetry Rate (Approximate) 60-70 BPM 06/30/23 07:00 Telemetry Heart Rate 76 06/30/23 07:00 Telemetry SPO2 93 06/30/23 01:00 EKG TN Interval 0.12 06/30/23 07:00 EKG QRS Interval 0.11 H 06/30/23 07:00 Telemetry Strip Reading Sinus Rhythm 06/30/23 01:00 Imaging: EXAM: PORTABLE CHEST HISTORY: Shortness of breath COMPARISON: Single-view chest 05/04/2023 FINDINGS / impression: The cardiomediastinal silhouette is stable. There is no consolidation or effusion. Stable bibasilar reticular opacities. There are no acute osseous abnormalities. Degenerative changes noted about both shoulder girdles. EXAM: CT ANGIOGRAM CHEST WITH INTRAVENOUS CONTRAST 06/27/2023. MULTIPLANAR REFORMATTED IMAGES OBTAINED. MIP AND THREE-DIMENSIONAL RECONSTRUCTED IMAGES PROVIDED HISTORY: Hypoxia and tachycardia COMPARISON: 06/27/2023, 05/05/2023 FINDINGS: The heart size appears within normal limits. There is no pericardial effusion. No pathologic appearing mediastinal, hilar or axillary lymphadenopathy. There are no pulmonary arterial filling defects to suggest pulmonary embolus. Diffuse pulmonary emphysema. Debris layers within the dependent aspect of the trachea. There is occlusion of multiple bilateral lower lobe airways. Severe diffuse peribronchial thickening. Patchy bibasilar pulmonary infiltrates likely due to pneumonia. This combination of findings is suggestive of aspiration. Limited views of the upper abdomen shows no acute abnormality. IMPRESSION: 1. No pulmonary embolus. 2. Debris within the trachea. Occlusion multiple bilateral lower lobe airways. This is suggestive of aspiration. 3. Bibasilar infiltrates, right greater than left. This likely represents aspiration pneumonia 4. Severe diffuse peribronchial thickening. 5. Diffuse pulmonary emphysema. Lab Results Last 24 Hours: 06/30/23 07:47 WBC 10.30 H RBC 3.62 L Hgb 11.2 L Hct 35.4 L MCV 97.8 H MCH 30.9 MCHC 31.6 L RDW Coeff of Sheila 15.6 H Plt Count 246 Immature Gran % (Auto) 1.8 Neut % (Auto) 88.6 H Lymph % (Auto) 4.[address] [place] % (Auto) 4.9 Eos % (Auto) 0.0 Baso % (Auto) 0.1 Neut # (Auto) 9.1 H Lymph # (Auto) 0.[address] [place] # (Auto) 0.5 Eos # (Auto) 0.0 Baso # (Auto) 0.0 Immature Gran # (Auto) 0.2 Sodium 136.9 Potassium 3.43 L Chloride 109.0 H Carbon Dioxide 25.1 Anion Gap 6.23 BUN 16.0 Creatinine 0.69 Estimated GFR (MDRD) 110.00 BUN/Creatinine Ratio 23.18 Glucose 112.2 H Calcium 7.54 L Total Bilirubin 0.71 AST 37.4 ALT 28.5 Alkaline Phosphatase 61.7 Total Protein 5.26 L Albumin 2.39 L Globulin 2.87 Albumin/Globulin Ratio 0.83 Discharge Instructions Discharge Planning: Discharge Planning > [address] Stephanie Beltran. Discharge Medications: Medications at Discharge (Home Meds & RX) acetaminophen 650 mg tablet,extended release 650 mg PO Q6HR PRN pain 05/05/23 aluminum-mag hydroxide-simethicone 200 mg-200 mg-20 mg/5 mL oral susp 10 ml PO Q6H PRN indigestion/gas/heartburn 05/05/23 benztropine 0.5 mg tablet 1 mg PO BID 05/05/23 bisacodyl 10 mg rectal suppository 10 mg TN PRN PRN constipation 05/05/23 cholecalciferol (vitamin D3) 25 mcg (1,000 unit) tablet 2,000 unit PO DAILY 05/05/23 famotidine 20 mg tablet 20 mg PO DAILY 05/05/23 ipratropium 0.5 mg-albuterol 3 mg (2.5 mg base)/3 mL nebulization soln 3 ml inhalation Q6H PRN shortness of breath or wheezing 05/05/23 loperamide 2 mg capsule (Anti-Diarrheal (loperamide)) 2 mg PO Q2H PRN loose stool 05/05/23 magnesium hydroxide 400 mg/5 mL oral suspension (Milk of Magnesia) 30 ml PO PRN PRN constipation 05/05/23 paroxetine HCl 10 mg tablet 10 mg PO QAM 05/05/23 paroxetine HCl 20 mg tablet 20 mg PO QAM 05/05/23 quetiapine 25 mg tablet 25 mg PO .@HS 05/05/23 tamsulosin 0.4 mg capsule (Flomax) 0.4 mg PO DAILY 05/05/23 trazodone 50 mg tablet 50 mg PO .@HS 05/05/23 triamcinolone acetonide 0.1 % topical cream 1 applic topical BID 05/05/23 ciprofloxacin HCl 500 mg tablet (Cipro) 500 mg PO BID UTI #14 tabs 05/06/23 azithromycin 250 mg tablet 250 mg PO DAILY 06/27/23 mirtazapine 7.5 mg tablet 7.5 mg PO QHS 06/27/23 tamsulosin 0.4 mg capsule (Flomax) 0.4 mg PO DAILY 06/27/23 Discharge Plan Discharge Discharge Orders: Discharge Patient (ONCE); Ordered 06/30/23 Ordered By: BETH STUART Activity Restrictions/Additional Instructions: DISCHARGE TO SNF DIET: PER ST. RECOMMEND CONTINUING ST AT SNF ACTIVITY: TOLERATED O2 2-3 L WILL REQUIRE INVANZ IM FOR ESBL POSITIVE URINE, CONTACT PRECAUTIONS CONSIDER READDRESSING CODE STATUS WITH DAUGHTER TO CLARIFY HER WISHES Instructions: Influenza (DC) Care Plan Goals: Problem: Impaired Respiratory Status Goal: Exhibit optimal respiratory function Instructions: Activities as tolerated Apply oxygen as ordered Elevate head of bed Notify MD of increased congestion Patient Disposition: TRANSFER SNF Prescriptions: New Saccharomyces boulardii [Florastor] 250 mg Capsule 250 mg PO BID Qty: 60 0RF prednisone 20 mg tablet 20 mg PO BID 5 Days Qty: 10 0RF ertapenem 1 gram recon soln 1 g IM DAILY 10 Days Qty: 10 0RF doxycycline monohydrate 100 mg capsule 100 mg PO BID 7 Days Qty: 14 0RF oseltamivir [Tamiflu] 75 mg capsule 75 mg PO BID Qty: 3 0RF Rx Instructions: starting tonight 06/29, last dose evening of 06/30 Continued acetaminophen 650 mg tablet extended release 650 mg PO Q6HR PRN (Reason: pain) alum-mag hydroxide-simeth 200-200-20 mg/5 mL suspension 10 ml PO Q6H PRN (Reason: indigestion/gas/heartburn) benztropine 0.5 mg tablet 1 mg PO BID bisacodyl 10 mg suppository 10 mg TN PRN PRN (Reason: constipation) Rx Instructions: insert 1 suppository rectally as needed for constipation. Administer 1 time if no results from MOM cholecalciferol (vitamin D3) 25 mcg (1,000 unit) tablet 2,000 unit PO DAILY famotidine 20 mg tablet 20 mg PO DAILY ipratropium-albuterol 0.5 mg-3 mg(2.5 mg base)/3 mL solution for nebulization 3 ml inhalation Q6H PRN (Reason: shortness of breath or wheezing) loperamide [Anti-Diarrheal (loperamide)] 2 mg capsule 2 mg PO Q2H PRN (Reason: loose stool) Rx Instructions: Give 1 tab PO every 2 hrs PRN diarrhea - max 8 mg daily magnesium hydroxide [Milk of Magnesia] 400 mg/5 mL suspension 30 ml PO PRN PRN (Reason: constipation) Rx Instructions: Give 30ml PO as needed for constipation. may administer one time if no bowel movement for 3 days paroxetine HCl 10 mg tablet 10 mg PO QAM Rx Instructions: Give 1 tab PO in morning for behavioral disorder. Add with Paxil 20mg in AM quetiapine 25 mg tablet 25 mg PO .@HS triamcinolone acetonide 0.1 % cream 1 applic TOPICAL BID Rx Instructions: Apply to arms, legs, & torso topically every AM and PM shift. Related to Psoriasis; wash skin with soap and water before application tamsulosin [Flomax] 0.4 mg capsule 0.4 mg PO DAILY mirtazapine 7.5 mg tablet 7.5 mg PO QHS Discontinued azithromycin 250 mg tablet 250 mg PO DAILY Did you review [place] SERVICE ORDER CLERK for ALL controlled substances?: Not Applicable Discussed opioids are addictive and Narcan is available by prescription or from pharmacy.: No Condition: Stable
== END 2023-06-30 11:20 | DRG 189 ==
LOC: ED 05:10 → SCU 07:40
PROVIDERS: ADMIT Hospitalist; ATTEND Physician Assistant
DX: B95.61 Methicillin susceptible Staphylococcus aureus infection as the cause of diseases classified elsewhere; N17.9 Acute kidney failure, unspecified; E86.0 Dehydration; F03.90 Unspecified dementia, unspecified severity, without behavioral disturbance, psychotic disturbance, mood disturbance, and anxiety; A41.9 Sepsis, unspecified organism; J10.81 Influenza due to other identified influenza virus with encephalopathy; J96.20 Acute and chronic respiratory failure, unspecified whether with hypoxia or hypercapnia; J69.0 Pneumonitis due to inhalation of food and vomit; Z74.3 Need for continuous supervision; N39.0 Urinary tract infection, site not specified; J11.1 Influenza due to unidentified influenza virus with other respiratory manifestations; N40.0 Benign prostatic hyperplasia without lower urinary tract symptoms; Z96.0 Presence of urogenital implants; Z16.12 Extended spectrum beta lactamase (ESBL) resistance; F17.210 Nicotine dependence, cigarettes, uncomplicated; Z20.822 Contact with and (suspected) exposure to COVID-19; R06.02 Shortness of breath

== ENCOUNTER 2023-07-05 10:22 | Observation (INO) ==
--- NOTE | 2023-07-05 10:50 | ED.PDOC ---
General ED Provider: Dr. GILL FRIEND MD Chief Complaint: Non-specific Complaint Stated Complaint: 83 year old male from longterm with pmhx of dementia, PVD, depression, COPD, BPH with chronic barone, who presents to the ER with failure to thrive. Patient was recently recently discharged from the hospital for acute respiratory failure secondary to influenza type B. Patient respiratory status had improved and [facility] the facility patient has not been eating or drinking and refusing to take his medications lungs sounded congested so has brought him back to the emergency room. Paperwork showing patient is a DNR comfort focused treatment. Time Seen by Provider: 07/05/23 10:35 Information Source: Patient Primary Care Provider: BERNADTETE KILGORE Nursing and Triage Documentation Reviewed and Agree: Yes What is Opioid Naive?: *Opioid Naive implies the patient is not already taking opioids or not chronically receiving opioids on a daily basis. *PRN dosing is not "usually" associated with tolerance. *Patients are at higher risk of over-sedation and aspiration. What is Opioid Tolerant?: *Opioid Tolerance implies less than the expected response to an opioid. *Acquired tolerance is defined by the patient taking 60mg of oral morphine daily (or equianalgesic dose of another opioid) for 1 week or more. *Often associated with chronic pain. *May take more than usual dose to achieve desired pain control. Review of Systems Review Of Systems Constitutional: Reports Weakness All Other Systems: Reviewed and Negative [facility] Medical History (Updated 07/05/23 @ 12:06 by GILL FRIEND MD) Barone catheter in place Z97.8 - Presence of other specified devices (ICD-10) Family History (Updated 06/27/23 @ 16:05 by ESTER TEMPLE RN) Unknown No known health problems Social History Smoking and tobacco status: Current every day smoker Physical Exam Physical Exam Appearance: Reports Thin and Cachectic Ill-appearing: Mild Pain Distress: None Eyes: Reports DAKOTA and EOMI ENT: Reports Ears normal Neck: Supple Respiratory: Reports Airway patent (Mouth breather, very dry mucous membranes), Breath sounds diminished, Rhonchi and Wheezes Cardiovascular: Reports RRR, Pulses normal and No rub GI/: Reports Soft, Nontender, No masses and Bowel sounds normal Musculoskeletal: Reports Other (Generalized muscle wasting/stiffness) Skin: Reports Warm and Dry Neurological: Reports Other (Patient is nonverbal, unable to perform neurological exam) Interpretation EKG Interpretation EKG Interpretation By: ED Physician Time of EKG #1: 10:59 Rate: Normal Rhythm: Sinus Ectopy: None [place]: NL Interpretation: RBBB, no sings of ischemia Critical Care Note Critical Care Note Total Critical Care Time (mins): 30 Course Course 07/05/23 10:52 07/05/23 10:52 Orders, Labs, Meds: Lab Review 07/05/23 07/05/23 10:43 10:52 WBC 12.15 H RBC 5.13 Hgb 15.6 Hct 49.2 MCV 95.9 H MCH 30.4 MCHC 31.7 L RDW Coeff of Sheila 15.2 H Plt Count 347 Neutrophils % (Manual) 79.0 H Lymphocytes % (Manual) 10.0 Monocytes % (Manual) 11.0 H Reactive Lymphocytes 7.0 H Anisocytosis Not present Sodium 140.8 Potassium 3.88 Chloride 107.0 Carbon Dioxide 28.2 Anion Gap 9.48 BUN 18.7 Creatinine 0.84 Estimated GFR (MDRD) 87.00 BUN/Creatinine Ratio 22.26 Glucose 76.7 Lactic Acid 1.42 Calcium 8.82 Total Bilirubin 1.21 AST 31.2 ALT 24.0 Alkaline Phosphatase 93.5 Troponin I < 0.012 NT-Pro-B Natriuret Pep 1430 H Total Protein 6.59 Albumin 3.27 L Globulin 3.32 Albumin/Globulin Ratio 0.98 Urine Color Pallavi Urine Clarity Cloudy Urine pH 5.5 Ur Specific [place] >=1.030 Urine Protein 2+ H Urine Glucose (UA) Negative Urine Ketones 2+ H Urine Blood 3+ H Urine Nitrite Negative Urine Bilirubin 3+ H Urine Urobilinogen 1.0 H Ur Leukocyte Esterase Trace H Urine Microscopic RBC Tntc Urine Microscopic WBC 5-10 Ur Squamous Epith Cells 0-2 Urine Bacteria 1+ Urine Mucus Trace SARS CoV-2 RNA Rapid AMAN Negative Orders Category Date Time Status ADMIT OBSERVATION [PLACE PATIENT OBSERVATION] .TO ADMISSION 07/05/23 12:07 Ordered MEDSURG (MONITORED BED) EKG-(ED ONLY) Stat CARDIO 07/05/23 10:38 Completed TELEMETRY MONITORING TELE CARE 07/05/23 12:07 Ordered Monitor [ED BRICK POINTER APPLIED] .ONCE EMERGENCY 07/05/23 10:38 Active Saline Lock [ED IV/MEDIPORT/POWERPORT] .ONCE EMERGENCY 07/05/23 10:38 Active BLOOD CULTURE Stat LAB 07/05/23 11:19 Received CBC W/ AUTO DIFF Stat LAB 07/05/23 10:52 Completed CMP [COMPREHENSIVE METABOLIC PANEL] Stat LAB 07/05/23 10:52 Completed COVID [SARS COV-2 RNA RAPID AMAN] Stat LAB 07/05/23 10:43 Completed LACTIC ACID Stat LAB 07/05/23 10:52 Completed MANUAL DIFFERENTIAL Stat LAB 07/05/23 10:52 Completed NT-PROBNP(ED) Stat LAB 07/05/23 10:52 Completed TROPONIN I Stat LAB 07/05/23 10:52 Completed TROPONIN I Stat LAB 07/05/23 11:06 Ordered URINALYSIS C & S IF INDICATED Stat LAB 07/05/23 10:43 Completed URINE CULTURE Stat LAB 07/05/23 10:43 Received 0.9 % Sodium Chloride [Saline Flush] Meds 07/05/23 10:38 Active 1 syr IVF PRN PRN Ceftriaxone/D5w 1 gm Premix [Rocephin 1 gm/50 ml D5w] Meds 07/05/23 11:24 Discontinued 1 gm in 50 ml IV ONCE Methylprednisolone Sod Succ/Pf [Solu-Medrol 125 mg] Meds 07/05/23 11:24 Discontinued 125 mg IVP ONCE ONE Sodium Chloride 0.9% [Sodium Chloride] 1,000 ml Meds 07/05/23 10:38 Discontinued IV BOLUS CXR [CHEST, 1V AP ONLY] Stat RADS 07/05/23 10:38 Completed FOOT, RIGHT 3 VIEWS Stat RADS 07/05/23 10:52 Completed Medications Generic Name Dose Route Start Last Admin Trade Name Freq PRN Reason Stop Dose Admin Sodium Chloride 1 syr 07/05/23 10:38 07/05/23 11:59 0.9% Sodium Chloride 10 Ml Disp.Syrin IVF 1 syr PRN PRN Administration To flush IV Discontinued Medications Generic Name Dose Route Start Last Admin Trade Name Freq PRN Reason Stop Dose Admin Sodium Chloride 1,000 mls @ 1,000 mls/hr 07/05/23 10:38 07/05/23 11:03 Sodium Chloride IV 07/05/23 11:37 1,000 mls/hr BOLUS ONE Administration CEFTRIAXONE/D5W 1 GM PREMIX 1 gm in 50 mls @ 100 mls/hr 07/05/23 11:24 07/05/23 11:57 Rocephin 1 Gm/50 Ml D5w IV 07/05/23 11:53 100 mls/hr ONCE ONE Administration Methylprednisolone Sodium Succinate 125 mg 07/05/23 11:24 07/05/23 11:59 Methylprednisolone Sod Succ/Pf 125 Mg/2 Ml Vial IVP 07/05/23 11:25 125 mg ONCE ONE Administration Vital Signs: Temp Pulse Resp BP Pulse Ox 07/05/23 10:29 98.0 F 100 20 117/83 100 workup showing leukocytosis with left shift, UA showing trace of leukocyte esterase and 5-10 WBCs patient was given 1 g of Rocephin and 1 L NS IV chest x- ray read read as bronchovascular congestion lungs look hyperinflated there is also possible component of aspiration patient was given 125 mg Solu-Medrol call the hospitalist on-call Mirza discussed the patient case with her and she accepted the patient for admission. Discharge Plan Discharge Patient Disposition: ADMITTED INPATIENT Discharge Problem: UTI (urinary tract infection), Aspiration pneumonia Did you review [place] [employer] for ALL controlled substances?: Not Applicable ED Provider: GILL FRIEND Condition: Stable Physician Progress Note: []
[2023-07-05 10:57] LABS: HEMATOCRIT 49.2 % (42.0-52.0); HEMOGLOBIN 15.6 g/dl (14.0-18.0); MEAN CORPUSCULAR HEMOGLOBIN 30.4 pg (27.0-31.0); MEAN CORPUSCULAR HGB CONC 31.7 (31.8-35.4); MEAN CORPUSCULAR VOLUME 95.9 fl (80.0-94.0); PLATELET COUNT 347 10^3/uL (140-440); RDW COEFFICIENT OF VARIATION 15.2 % (11.6-14.8); RED BLOOD COUNT 5.13 10^6/ul (4.70-6.10); WHITE BLOOD COUNT 12.15 K/ul (4.2-10.2)
[2023-07-05 11:01] LABS: BILIRUBIN,URINE 3+ (NEGATIVE); CLARITY,URINE Cloudy (CLEAR); COLOR,URINE Amber (YELLOW); GLUCOSE, URINE (UA) Negative (NEGATIVE); KETONES,URINE 2+ (NEGATIVE); LEUKOCYTE ESTERASE ,URINE Trace (NEGATIVE); NITRITE,URINE Negative (NEGATIVE); PH,URINE 5.5 (5-9); PROTEIN,URINE 2+ (NEGATIVE); URINE, BLOOD 3+ (NEGATIVE)
[2023-07-05] MEDS: SODIUM CHLORIDE 1,000 ML IV ONE (11:03)
[2023-07-05 11:10] LABS: BACTERIA,URINE 1+ (NOT PRESENT); MUCUS,URINE TRACE (NOT PRESENT); SQUAMOUS EPITHELIAL CELL,UR 0-2 (0-5); URINE RBC, MICROSCOPIC TNTC (0-2)
--- NOTE | 2023-07-05 11:13 | DI ---
EXAM: CHEST RADIOGRAPH TECHNIQUE: Single frontal chest radiograph. HISTORY: Congestion. COMPARISON: 06/27/2023. FINDINGS: Lungs/Pleura: Mild interstitial prominence and bronchovascular thickening which may be chronic. No s izable effusion or focal pneumonic infiltrate. Heart: The heart size is normal. Bones: Mild degenerative changes. Other: None. IMPRESSION: 1. Similar diffuse interstitial prominence and bronchovascular thickening may be chronic.
[2023-07-05 11:22] LABS: ALBUMIN 3.27 g/dL (3.5-5.0); ALKALINE PHOSPHATASE 93.5 U/L (56-119); ASPARTATE AMINO TRANSFERASE 31.2 U/L (17-59); BILIRUBIN,TOTAL 1.21 mg/dL (0.2-1.3); BLOOD UREA NITROGEN 18.7 mg/dL (9-20); CALCIUM 8.82 mg/dL (8.4-10.2); CARBON DIOXIDE 28.2 mmol/L (22-30.0); CREATININE 0.84 mg/dL (0.60-1.10); GLUCOSE 76.7 mg/dL (74-106); POTASSIUM 3.88 mmol/L (3.5-5.1); SODIUM 140.8 mmol/L (134.5-145); TOTAL PROTEIN 6.59 g/dL (6.3-8.2)
[2023-07-05 11:22] LABS: SARS COV-2 RNA RAPID NAAT NEGATIVE (NEGATIVE)
[2023-07-05 11:25] LABS: ANISOCYTOSIS NOT PRESENT (NOT PRESENT)
--- NOTE | 2023-07-05 11:27 | DI ---
EXAM: RIGHT FOOT 3 VIEWS HISTORY: Right foot pain COMPARISON: None FINDINGS: No acute fracture or dislocation. The toes are extended at the metatarsal phalangeal join t spaces. There is suggestion of mild narrowing of the interphalangeal joint spaces of the second th rough fifth toes. There is mild narrowing of the first metatarsal-phalangeal joint. The bones are o steopenic. Plantar and retrocalcaneal enthesophytes are noted. No localized soft tissue abnormalitie s are appreciated. IMPRESSION: 1. Osteoarthritis and osteopenia. 2. No acute fracture or dislocation. .
[2023-07-05 11:37] LABS: TROPONIN I < 0.012 ng/ml (0.0000-0.120)
[2023-07-05] MEDS: ROCEPHIN 1 GM/50 ML D5W 1 GM/50 ML BAG IV ONE (11:57)
[2023-07-05] MEDS: SOLU-MEDROL 125 MG IVP ONE (11:59)
--- NOTE | 2023-07-05 13:44 | PCM ---
Date of Service Date Seen by Provider: 07/05/23 Time Seen by Provider: 13:15 Admit Day/Time Admission Date: 07/05/23 Reason for Admission Chief Complaint: UTI; ASPIRATION PNEUMONIA Hospital Provider Hospital Provider[place] [facility] [place] Primary Care Physician: BERNADETTE KILGORE History of Present Illness History of Present Illness: 83 yo male presented to the ER from local shelter for not eating and drinking and gurgling while breathing. Patient was recently admitted for aspiration pneumonia, flu A, and UTI d/t E Coli and staph aureus ESBL+. He has been unable to finish his course of antibiotics due to dysphagia and aspiration. He has had multiple now 3 hospitalizations in the last 3 months and is continuing to worsen. He is dependent for all ADLs, has had recurrent infection, and has declined physically and functionally. During last hospitalizations, patient was able to speak in sentences and now he is only making intelligible noises. Patient unable to provide HPI. Case Discussed With Case Discussed With: Patient's case was discussed with the ER Physicians, Dr. Garcia [facility] Medical History Stiles catheter in place Z97.8 - Presence of other specified devices (ICD-10) Family History Unknown No known health problems Social History Smoking and tobacco status: Current every day smoker Allergies Allergies Allergy/AdvReac Type Severity Reaction Status Date / Time No Known Allergies Allergy Verified 05/04/23 22:45 Current Medications Home Medications acetaminophen 650 mg tablet,extended release 650 mg PO Q6HR PRN pain 05/05/23 [History Confirmed 07/05/23 Last Taken Unknown] aluminum-mag hydroxide-simethicone 200 mg-200 mg-20 mg/5 mL oral susp 10 ml PO Q6H PRN indigestion/gas/heartburn 05/05/23 [History Confirmed 07/05/23 Last Taken Unknown] benztropine 0.5 mg tablet 1 mg PO BID 05/05/23 [History Confirmed 07/05/23 Last Taken 06/26/23 20:00 0.5 mg] bisacodyl 10 mg rectal suppository 10 mg SD PRN PRN constipation 05/05/23 [History Confirmed 07/05/23 Last Taken Unknown] cholecalciferol (vitamin D3) 25 mcg (1,000 unit) tablet 2,000 unit PO DAILY 05/05/23 [History Confirmed 07/05/23 Last Taken 06/26/23 08:00 2,000 unit] famotidine 20 mg tablet 20 mg PO DAILY 05/05/23 [History Confirmed 07/05/23 Last Taken 06/26/23 06:00 20 mg] ipratropium 0.5 mg-albuterol 3 mg (2.5 mg base)/3 mL nebulization soln 3 ml inhalation Q6H PRN shortness of breath or wheezing 05/05/23 [History Confirmed 07/05/23 Last Taken Unknown] loperamide 2 mg capsule (Anti-Diarrheal (loperamide)) 2 mg PO Q2H PRN loose stool 05/05/23 [History Confirmed 07/05/23 Last Taken Unknown] magnesium hydroxide 400 mg/5 mL oral suspension (Milk of Magnesia) 30 ml PO PRN PRN constipation 05/05/23 [History Confirmed 07/05/23 Last Taken Unknown] paroxetine HCl 10 mg tablet 10 mg PO QAM 05/05/23 [History Confirmed 07/05/23 Last Taken 06/26/23 08:00 10 mg] quetiapine 25 mg tablet 25 mg PO .@HS 05/05/23 [History Confirmed 07/05/23 Last Taken 06/26/23 20:00 25 mg] triamcinolone acetonide 0.1 % topical cream 1 applic topical BID 05/05/23 [History Confirmed 07/05/23 Last Taken 06/26/23 20:00 1 applic] mirtazapine 7.5 mg tablet 7.5 mg PO QHS 06/27/23 [History Confirmed 07/05/23 Last Taken 06/26/23 20:00 7.5 mg] tamsulosin 0.4 mg capsule (Flomax) 0.4 mg PO DAILY 06/27/23 [History Confirmed 07/05/23 Last Taken 06/26/23 08:00 0.4 mg] Saccharomyces boulardii 250 mg capsule (Florastor) 250 mg PO BID #60 caps 06/30/23 [Rx Confirmed 07/05/23 Last Taken Unknown] doxycycline monohydrate 100 mg capsule 100 mg PO BID 7 days #14 caps 06/30/23 [Rx Confirmed 07/05/23 Last Taken Unknown] ertapenem 1 gram solution for injection 1 g IM DAILY 10 days #10 ea 06/30/23 [Rx Confirmed 07/05/23 Last Taken Unknown] Home Lorazepam (Lorazepam Inj 2 Mg/Ml Vial) 2 mg IVP Q2H [place] Morphine Sulfate (Morphine Sulfate 2 Mg/Ml Syringe) 2 mg IVP Q2H [place] Scopolamine HBr (Scopolamine Hydrobromide 1.5 Mg Patch.Td72) 1 patch TD Q72HR [place] Sodium Chloride (0.9% Sodium Chloride 10 Ml Disp.Syrin) 1 syr IVF PRN PRN PRN Reason: To flush IV Last Admin: 07/05/23 11:59 Dose: 1 syr Discontinued Medications Sodium Chloride (Sodium Chloride) 1,000 mls @ 1,000 mls/hr IV BOLUS ONE Stop: 07/05/23 11:37 Last Infusion: 07/05/23 12:55 Dose: Infused CEFTRIAXONE/D5W 1 GM PREMIX (Rocephin 1 Gm/50 Ml D5w) 1 gm in 50 mls @ 100 mls/hr IV ONCE ONE Stop: 07/05/23 11:53 Last Admin: 07/05/23 11:57 Dose: 100 mls/hr Methylprednisolone Sodium Succinate (Methylprednisolone Sod Succ/Pf 125 Mg/2 Ml Vial) 125 mg IVP ONCE ONE Stop: 07/05/23 11:25 Last Admin: 07/05/23 11:59 Dose: 125 mg Opioid Naive vs. Tolerant Does Patient Take Opioids?: No Is Patient Opioid Naive?: Yes What is Opioid Naive?: *Opioid Naive implies the patient is not already taking opioids or not chronically receiving opioids on a daily basis. *PRN dosing is not "usually" associated with tolerance. *Patients are at higher risk of over-sedation and aspiration. Is Patient Opioid Tolerant?: No What is Opioid Tolerant?: *Opioid Tolerance implies less than the expected response to an opioid. *Acquired tolerance is defined by the patient taking 60mg of oral morphine daily (or equianalgesic dose of another opioid) for 1 week or more. *Often associated with chronic pain. *May take more than usual dose to achieve desired pain control. Physical examination Most Recent Vital Signs: Most Recent Vital Signs Temperature 98.0 F 07/05/23 10:29 Temperature Source Infrared 07/05/23 10:29 Pulse Rate 100 07/05/23 10:29 Respiratory Rate 20 07/05/23 10:29 Blood Pressure 117/83 07/05/23 10:29 O2 Sat by Pulse Oximetry 100 07/05/23 10:29 Height 6 ft 07/05/23 10:29 Weight 131 lb 9.855 oz 07/05/23 10:29 Telemetry Heart Rate 76 06/30/23 07:00 Telemetry SPO2 93 06/30/23 01:00 Appearance: Positive Ill-Appearing, Thin and Cachectic Skin: Positive Other (pale) HEENT: Positive Normocephalic and Atraumatic Neck: Positive Supple and Midline Trachea Chest/Lungs: Positive Symmetrical With Equal Breath Sounds and Other (course, crackles throughout lung davis) Heart: Positive RRR and Pulses Normal GI/: Positive Soft, Nontender and Bowel Sounds Hypoactive Musculoskeletal: Positive Not Examined Extremities: Positive Intact Peripheral Pulses Neurological: Positive Sensation Intact, Alert, Disorinted and Other (intelligible noises) Labs This Visit Labs This Visit: Labs This Visit 07/05/23 07/05/23 10:43 10:52 WBC 12.15 H RBC 5.13 Hgb 15.6 Hct 49.2 MCV 95.9 H MCH 30.4 MCHC 31.7 L RDW Coeff of Sheila 15.2 H Plt Count 347 Neutrophils % (Manual) 79.0 H Lymphocytes % (Manual) 10.0 Monocytes % (Manual) 11.0 H Reactive Lymphocytes 7.0 H Anisocytosis Not present Sodium 140.8 Potassium 3.88 Chloride 107.0 Carbon Dioxide 28.2 Anion Gap 9.48 BUN 18.7 Creatinine 0.84 Estimated GFR (MDRD) 87.00 BUN/Creatinine Ratio 22.26 Glucose 76.7 Lactic Acid 1.42 Calcium 8.82 Total Bilirubin 1.21 AST 31.2 ALT 24.0 Alkaline Phosphatase 93.5 Troponin I < 0.012 NT-Pro-B Natriuret Pep 1430 H Total Protein 6.59 Albumin 3.27 L Globulin 3.32 Albumin/Globulin Ratio 0.98 Urine Color Pallavi Urine Clarity Cloudy Urine pH 5.5 Ur Specific [place] >=1.030 Urine Protein 2+ H Urine Glucose (UA) Negative Urine Ketones 2+ H Urine Blood 3+ H Urine Nitrite Negative Urine Bilirubin 3+ H Urine Urobilinogen 1.0 H Ur Leukocyte Esterase Trace H Urine Microscopic RBC Tntc Urine Microscopic WBC 5-10 Ur Squamous Epith Cells 0-2 Urine Bacteria 1+ Urine Mucus Trace SARS CoV-2 RNA Rapid AMAN Negative Imaging Imaging: EXAM: CHEST RADIOGRAPH TECHNIQUE: Single frontal chest radiograph. HISTORY: Congestion. COMPARISON: 06/27/2023. FINDINGS: Lungs/Pleura: Mild interstitial prominence and bronchovascular thickening which may be chronic. No sizable effusion or focal pneumonic infiltrate. Heart: The heart size is normal. Bones: Mild degenerative changes. Other: None. IMPRESSION: 1. Similar diffuse interstitial prominence and bronchovascular thickening may be chronic. Review Statement Review Statement: I have independently reviewed and interpreted the labs/EKGs/imaging that were ordered by the ER provider. I have reviewed all outside records that are available currently in our EMR including imaging/notes/labs from previous visits. Plan Plan: 1. Recurrent Aspiration pneumonia d/t dysphagia 2. Recurrent UTI 3. Dementia Comfort measures initiated after speaking with daughterCrys. Requesting hospice at this time. Referral sent to [facility] and they will eval patient tomorrow to determine qualification of inpatient. Medications: Morphine 2 mg Q2H Ativan 2 mg Q2H Scopolamine Q72H DVT Prophylaxis: none, comfort measures Time Spent: Greater than 80 minutes spent with patient, 50% of the time spent with this patient was devoted to counseling and coordination of care. [facility] minutes spent discussing advance care planning. Disposition: Admit to: Med/Surg Observation DNR Discussed Plan of Care with Dr. Blaise Beltran. Medications Medication Orders: Medications Ordered Category Date Time Status 0.9 % Sodium Chloride [Saline Flush] Meds 07/05/23 10:38 Active 1 syr IVF PRN PRN Lorazepam [Ativan] Meds 07/05/23 14:00 Ordered 2 mg IVP Q2H Morphine Sulfate [Morphine 2 mg/ml Syringe] Meds 07/05/23 14:00 Ordered 2 mg IVP Q2H Scopolamine Hydrobromide [Transderm-Scop 1.5 mg Patch] Meds 07/05/23 13:45 Ordered 1 patch TD Q72HR
[2023-07-05] MEDS: TRANSDERM-SCOP 1.5 MG PATCH TD SCH (14:03)
[2023-07-05] MEDS: MORPHINE 2 MG/ML SYRINGE IVP SCH (14:41)
[2023-07-05] MEDS: ATIVAN IVP SCH (14:43)
[2023-07-05 15:20] VITALS: BMI 16.8
[2023-07-06 10:19] VITALS: BP 109/70; PULSE 55; RESP 22; TEMP 97.5
[2023-07-06] MEDS ORDERED: MORPHINE 2 MG/ML SYRINGE IVP PRN (11:42)
--- NOTE | 2023-07-06 11:55 | PCM.PROG ---
Date/Time Seen Date Seen by Provider: 07/06/23 Time Seen by Provider: 09:00 Provider Provider: SUN MIXON, [facility] Chief Complaint Chief Complaint: UTI; ASPIRATION PNEUMONIA Subjective Subjective: Patient tachycardic and tachypneic intermittently in addition to hypotensive over the past 24 hours. Mouth breathing with audible gurgling present. RT had difficulty checking pulse ox due to patient pulling away from due to discomfort. Has shearing/bed sore to coccyx. Objective Appearance: Positive Ill-Appearing, Thin and Cachectic Chest/Lungs: Positive Symmetrical With Equal Breath Sounds and Other (crackles mild throughout lung davis) Heart: Positive RRR and Pulses Normal GI/: Positive Soft, Nontender, Bowel Sounds Normal, No Distention and No Organomegaly Musculoskeletal: Positive Not Examined Neurological: Positive Other (unresponsive, agitated with tactile stimuli) Vital Signs Vital Signs: Vital Signs: Last 24 Hours 07/05/23 13:20 07/05/23 13:20 07/05/23 14:00 Temperature 97.6 F Temperature Source Temporal Artery Scan Pulse Rate 91 Respiratory Rate 28 H Blood Pressure Blood Pressure Mean Blood Pressure Right Arm 121/93 Blood Pressure Location Blood Pressure Position Supine O2 Sat by Pulse Oximetry 98 Oxygen Delivery Method Nasal Cannula Nasal Cannula Nasal Cannula Oxygen Flow Rate 2 2 Height 6 ft Weight 123 lb 14.4 oz 07/05/23 14:00 07/05/23 14:26 07/05/23 15:00 Temperature 97.6 F Temperature Source Temporal Artery Scan Pulse Rate 91 Respiratory Rate 28 H Blood Pressure 121/93 H Blood Pressure Mean 102 Blood Pressure Right Arm Blood Pressure Location Right Arm Blood Pressure Position Supine O2 Sat by Pulse Oximetry 98 96 Oxygen Delivery Method Nasal Cannula Nasal Cannula Nasal Cannula Oxygen Flow Rate 2 2 Height Weight 07/05/23 15:41 07/05/23 17:00 07/05/23 18:00 Temperature 96.8 F L Temperature Source Temporal Artery Scan Pulse Rate 119 H Respiratory Rate 26 H Blood Pressure 89/58 L Blood Pressure Mean 68 Blood Pressure Right Arm Blood Pressure Location Left Arm Blood Pressure Position Supine O2 Sat by Pulse Oximetry 88 L Oxygen Delivery Method Nasal Cannula Nasal Cannula Nasal Cannula Oxygen Flow Rate 2 Height Weight 07/05/23 18:00 07/05/23 19:00 07/05/23 20:00 Temperature Temperature Source Pulse Rate Respiratory Rate Blood Pressure Blood Pressure Mean Blood Pressure Right Arm Blood Pressure Location Blood Pressure Position O2 Sat by Pulse Oximetry Oxygen Delivery Method Nasal Cannula Nasal Cannula Nasal Cannula Oxygen Flow Rate Height Weight 07/05/23 20:00 07/05/23 20:00 07/05/23 20:31 Temperature 97 F L Temperature Source Temporal Artery Scan Pulse Rate 107 H Respiratory Rate 22 H Blood Pressure 86/56 L Blood Pressure Mean 66 Blood Pressure Right Arm Blood Pressure Location Right Arm Blood Pressure Position Supine O2 Sat by Pulse Oximetry 90 L Oxygen Delivery Method Nasal Cannula Nasal Cannula Nasal Cannula Oxygen Flow Rate 2 2 2 Height Weight 07/05/23 21:00 07/05/23 22:00 07/05/23 23:00 Temperature Temperature Source Pulse Rate Respiratory Rate Blood Pressure Blood Pressure Mean Blood Pressure Right Arm Blood Pressure Location Blood Pressure Position O2 Sat by Pulse Oximetry Oxygen Delivery Method Nasal Cannula Nasal Cannula Nasal Cannula Oxygen Flow Rate Height Weight 07/06/23 00:00 07/06/23 01:00 07/06/23 02:00 Temperature Temperature Source Pulse Rate Respiratory Rate Blood Pressure Blood Pressure Mean Blood Pressure Right Arm Blood Pressure Location Blood Pressure Position O2 Sat by Pulse Oximetry Oxygen Delivery Method Nasal Cannula Nasal Cannula Nasal Cannula Oxygen Flow Rate Height Weight 07/06/23 02:00 07/06/23 03:00 07/06/23 04:00 Temperature 97 F L Temperature Source Temporal Artery Scan Pulse Rate 102 H Respiratory Rate 16 Blood Pressure 106/81 Blood Pressure Mean 89 Blood Pressure Right Arm Blood Pressure Location Left Arm Blood Pressure Position Supine O2 Sat by Pulse Oximetry 92 L Oxygen Delivery Method Nasal Cannula Nasal Cannula Nasal Cannula Oxygen Flow Rate 2 Height Weight 07/06/23 05:00 07/06/23 05:08 07/06/23 05:19 Temperature 96.5 F L Temperature Source Temporal Artery Scan Pulse Rate 104 H Respiratory Rate 28 H Blood Pressure 104/80 Blood Pressure Mean 88 Blood Pressure Right Arm Blood Pressure Location Right Arm Blood Pressure Position Supine O2 Sat by Pulse Oximetry 91 L Oxygen Delivery Method Nasal Cannula Nasal Cannula Nasal Cannula Oxygen Flow Rate 2 2 Height Weight 07/06/23 05:58 07/06/23 07:00 07/06/23 07:30 Temperature Temperature Source Pulse Rate Respiratory Rate Blood Pressure Blood Pressure Mean Blood Pressure Right Arm Blood Pressure Location Blood Pressure Position O2 Sat by Pulse Oximetry Oxygen Delivery Method Nasal Cannula Nasal Cannula Nasal Cannula Oxygen Flow Rate 2 Height Weight 07/06/23 08:00 07/06/23 09:00 07/06/23 10:00 Temperature Temperature Source Pulse Rate Respiratory Rate Blood Pressure Blood Pressure Mean Blood Pressure Right Arm Blood Pressure Location Blood Pressure Position O2 Sat by Pulse Oximetry Oxygen Delivery Method Nasal Cannula Nasal Cannula Nasal Cannula Oxygen Flow Rate Height Weight 07/06/23 10:00 07/06/23 10:00 07/06/23 11:00 Temperature 97.5 F L Temperature Source Tympanic Pulse Rate 55 L Respiratory Rate 22 H Blood Pressure 109/70 Blood Pressure Mean 83 Blood Pressure Right Arm Blood Pressure Location Left Arm Blood Pressure Position Supine O2 Sat by Pulse Oximetry 91 L Oxygen Delivery Method Nasal Cannula Nasal Cannula Nasal Cannula Oxygen Flow Rate 2 2 Height Weight 07/06/23 11:51 Temperature Temperature Source Pulse Rate Respiratory Rate Blood Pressure Blood Pressure Mean Blood Pressure Right Arm Blood Pressure Location Blood Pressure Position O2 Sat by Pulse Oximetry Oxygen Delivery Method Nasal Cannula Oxygen Flow Rate Height Weight Additional Comments Additional Comments: I have independently reviewed and interpreted the labs/EKGs/imaging ordered during this hospital stay. I have reviewed outside records that are available in our EMR that pertain to medical stay including imaging/notes/labs from previous visits. Active Medications Active Medications: Medications Generic Name Dose Route Start Last Admin Trade Name Freq PRN Reason Stop Dose Admin Lorazepam 2 mg 07/06/23 11:42 Lorazepam Inj 2 Mg/Ml Vial IVP Q2H PRN Agitation Morphine Sulfate 2 mg 07/06/23 11:42 Morphine Sulfate 2 Mg/Ml Syringe IVP Q2H PRN Pain Scopolamine HBr 1 patch 07/05/23 13:45 07/05/23 14:03 Scopolamine Hydrobromide 1.5 Mg Patch.Td72 TD 1 patch Q72HR [place] Administration Sodium Chloride 1 syr 07/05/23 10:38 07/05/23 11:59 0.9% Sodium Chloride 10 Ml Disp.Syrin IVF 1 syr PRN PRN Administration To flush IV Plan Plan: 1. Recurrent Aspiration pneumonia d/t dysphagia 2. Recurrent UTI 3. Dementia Comfort measures initiated after speaking with daughter, Crys. Requesting hospice at this time. Referral sent to [facility] and they will eval patient today to determine qualification of inpatient. Adjusted ativan to prn due to comfort signs. Medications: Morphine 2 mg Q2H Ativan 2 mg Q4H PRN Scopolamine Q72H DVT Prophylaxis: none, comfort measures Review Statement Review Statement: I have personally discussed and reviewed the patient's visit/currently labs/imaging/decision making with Dr. Beltran, my supervising attending. Greater that 50 minutes spent with patient, 50% of the time spent with this patient was devoted to counseling and coordination of care.
[2023-07-06] MEDS: MORPHINE 2 MG/ML SYRINGE IVP SCH (12:13)
[2023-07-06] MEDS: ATIVAN IVP PRN (14:41)
--- NOTE | 2023-07-06 14:46 | DCSUM ---
Admission Date Admission Date: 07/05/23 Discharge Date Discharge Date: 07/06/23 Admission Diagnosis Admission Diagnosis: 1. Recurrent Aspiration pneumonia d/t dysphagia 2. Recurrent UTI 3. Dementia Discharge Diagnosis Discharge Diagnosis: 1. Recurrent Aspiration pneumonia d/t dysphagia 2. Recurrent UTI 3. Dementia Hospital Provider Hospital Provider: SUN MIXON, [facility] Primary Care Physician Primary Care Physician: BERNADETTE KILGORE Summary of History and Physical Summary of History and Physical: 83 yo male presented to the ER from local intermediate for not eating and drinking and gurgling while breathing. Patient was recently admitted for aspiration pneumonia, flu A, and UTI d/t E Coli and staph aureus ESBL+. He has been unable to finish his course of antibiotics due to dysphagia and aspiration. He has had multiple now 3 hospitalizations in the last 3 months and is continuing to worsen. He is dependent for all ADLs, has had recurrent infection, and has declined physically and functionally. During last hospitalizations, patient was able to speak in sentences and now he is only making intelligible noises. Patient unable to provide HPI. Hospital Course Subjective: During stay, patient has continued to show signs of discomfort and agitation. Will not allow nursing staff to perform ADLs without groaning and retracting in pain. Has been tachycardic and tachypneic at times. Has had the following regimen ordered but not given as directed. Medications: Morphine 2 mg Q2H Ativan 2 mg Q2H Scopolamine Q72H Comfort measures initiated after speaking with daughterCrys. Requested hospice. [facility] evaluated patient today and accepted into their inpatient hospice services. Appearance: Ill-appearing HEENT: MMM and Supple CVS: No Murmur Abdomen: Soft and Non-Tender Respiratory: Other (course crackles throughout lung davis, audible gurgling of secretions) Extremities: No Edema Vital Signs: Most Recent Vital Signs Temperature 97.5 F L 07/06/23 10:00 Temperature Source Tympanic 07/06/23 10:00 Temperature Source Infrared 07/05/23 10:29 Pulse Rate 55 L 07/06/23 10:00 Respiratory Rate 22 H 07/06/23 10:00 Blood Pressure 109/70 07/06/23 10:00 Blood Pressure Mean 83 07/06/23 10:00 Blood Pressure Right Arm 121/93 07/05/23 13:20 Blood Pressure Location Left Arm 07/06/23 10:00 Blood Pressure Position Supine 07/06/23 10:00 O2 Sat by Pulse Oximetry 91 L 07/06/23 10:00 Oxygen Delivery Method Nasal Cannula 07/06/23 13:57 Oxygen Flow Rate 2 07/06/23 10:00 Height 6 ft 07/05/23 13:20 Weight 123 lb 14.4 oz 07/05/23 13:20 Telemetry Heart Rate 76 06/30/23 07:00 Telemetry SPO2 93 06/30/23 01:00 Discharge Instructions Discharge Planning: Discharge Planning > 40 minutes If patient is discharged with left ventricular systolic dysfunction: NA Discharged with a beta merlene? [] If no, why not? [] Discharged with an david/arb? [] If no, why not? [] ADMIT TO INPATIENT [facility] Discharge Medications: Medications at Discharge (Home Meds & RX) acetaminophen 650 mg tablet,extended release 650 mg PO Q6HR PRN pain 05/05/23 aluminum-mag hydroxide-simethicone 200 mg-200 mg-20 mg/5 mL oral susp 10 ml PO Q6H PRN indigestion/gas/heartburn 05/05/23 benztropine 0.5 mg tablet 1 mg PO BID 05/05/23 bisacodyl 10 mg rectal suppository 10 mg NM PRN PRN constipation 05/05/23 cholecalciferol (vitamin D3) 25 mcg (1,000 unit) tablet 2,000 unit PO DAILY 05/05/23 famotidine 20 mg tablet 20 mg PO DAILY 05/05/23 ipratropium 0.5 mg-albuterol 3 mg (2.5 mg base)/3 mL nebulization soln 3 ml inhalation Q6H PRN shortness of breath or wheezing 05/05/23 loperamide 2 mg capsule (Anti-Diarrheal (loperamide)) 2 mg PO Q2H PRN loose stool 05/05/23 magnesium hydroxide 400 mg/5 mL oral suspension (Milk of Magnesia) 30 ml PO PRN PRN constipation 05/05/23 paroxetine HCl 10 mg tablet 10 mg PO QAM 05/05/23 quetiapine 25 mg tablet 25 mg PO .@HS 05/05/23 triamcinolone acetonide 0.1 % topical cream 1 applic topical BID 05/05/23 mirtazapine 7.5 mg tablet 7.5 mg PO QHS 06/27/23 tamsulosin 0.4 mg capsule (Flomax) 0.4 mg PO DAILY 06/27/23 Saccharomyces boulardii 250 mg capsule (Florastor) 250 mg PO BID #60 caps 06/30/23 doxycycline monohydrate 100 mg capsule 100 mg PO BID 7 days #14 caps 06/30/23 ertapenem 1 gram solution for injection 1 g IM DAILY 10 days #10 ea 06/30/23 azithromycin 250 mg tablet 250 mg PO BID 07/05/23 Discharge Plan Discharge Discharge Orders: Discharge Patient (ONCE); Ordered 07/06/23 Ordered By: KRYSTLE MATUTE Patient Disposition: [facility] TO HOSPICE Prescriptions: No Action acetaminophen 650 mg tablet extended release 650 mg PO Q6HR PRN (Reason: pain) alum-mag hydroxide-simeth 200-200-20 mg/5 mL suspension 10 ml PO Q6H PRN (Reason: indigestion/gas/heartburn) benztropine 0.5 mg tablet 1 mg PO BID bisacodyl 10 mg suppository 10 mg NM PRN PRN (Reason: constipation) Rx Instructions: insert 1 suppository rectally as needed for constipation. Administer 1 time if no results from [facility]OM cholecalciferol (vitamin D3) 25 mcg (1,000 unit) tablet 2,000 unit PO DAILY famotidine 20 mg tablet 20 mg PO DAILY ipratropium-albuterol 0.5 mg-3 mg(2.5 mg base)/3 mL solution for nebulization 3 ml inhalation Q6H PRN (Reason: shortness of breath or wheezing) loperamide [Anti-Diarrheal (loperamide)] 2 mg capsule 2 mg PO Q2H PRN (Reason: loose stool) Rx Instructions: Give 1 tab PO every 2 hrs PRN diarrhea - max 8 mg daily magnesium hydroxide [Milk of Magnesia] 400 mg/5 mL suspension 30 ml PO PRN PRN (Reason: constipation) Rx Instructions: Give 30ml PO as needed for constipation. may administer one time if no bowel movement for 3 days paroxetine HCl 10 mg tablet 10 mg PO QAM Rx Instructions: Give 1 tab PO in morning for behavioral disorder. quetiapine 25 mg tablet 25 mg PO .@HS triamcinolone acetonide 0.1 % cream 1 applic TOPICAL BID Rx Instructions: Apply to arms, legs, & torso topically every AM and PM shift. Related to Psoriasis; wash skin with soap and water before application tamsulosin [Flomax] 0.4 mg capsule 0.4 mg PO DAILY mirtazapine 7.5 mg tablet 7.5 mg PO QHS Saccharomyces boulardii [Florastor] 250 mg Capsule 250 mg PO BID Qty: 60 0RF ertapenem 1 gram recon soln 1 g IM DAILY 10 Days Qty: 10 0RF doxycycline monohydrate 100 mg capsule 100 mg PO BID 7 Days Qty: 14 0RF azithromycin 250 mg tablet 250 mg PO BID Did you review [place] [employer] for ALL controlled substances?: No Discussed opioids are addictive and Narcan is available by prescription or from pharmacy.: No Condition: Poor
== END 2023-07-06 14:45 | disposition home or self-care (01) ==
LOC: ED 10:22 → MEDSURG B 10:22
PROVIDERS: ADMIT Hospitalist; ATTEND Nurse Practitioner Family
DX: F03.90 Unspecified dementia, unspecified severity, without behavioral disturbance, psychotic disturbance, mood disturbance, and anxiety; Z87.440 Personal history of urinary (tract) infections; R41.82 Altered mental status, unspecified; Z79.899 Other long term (current) drug therapy; Z51.81 Encounter for therapeutic drug level monitoring; R13.10 Dysphagia, unspecified; R06.9 Unspecified abnormalities of breathing; Z20.822 Contact with and (suspected) exposure to COVID-19; D72.829 Elevated white blood cell count, unspecified; Z99.89 Dependence on other enabling machines and devices; J69.0 Pneumonitis due to inhalation of food and vomit; Z99.81 Dependence on supplemental oxygen; Z74.3 Need for continuous supervision; N39.0 Urinary tract infection, site not specified; F17.210 Nicotine dependence, cigarettes, uncomplicated; Z96.0 Presence of urogenital implants

== ENCOUNTER 2023-07-06 15:22 | Inpatient (IN) ==
[2023-07-06] MEDS ORDERED: ATIVAN IVP PRN (15:40)
[2023-07-06] MEDS ORDERED: MORPHINE 2 MG/ML SYRINGE IVP SCH (16:00)
[2023-07-06] MEDS: MORPHINE 2 MG/ML SYRINGE IVP SCH (16:16)
[2023-07-06 16:55] VITALS: BMI 16.8
--- NOTE | 2023-07-06 21:00 | PCM ---
Date of Service Date Seen by Provider: 07/06/23 Admit Day/Time Admission Date: 07/06/23 Reason for Admission Chief Complaint: RESP FAILURE, ASPIRATION PNEUMONIA Hospital Provider Hospital Provider[facility] SUN MIXON, [facility] Primary Care Physician Primary Care Physician: BERNADETTE KILGORE History of Present Illness History of Present Illness: 83 yo male admitted to inpatient following hospitalizations for recurrent aspiration pneumonia and UTI. Patient from local SNF and was sent to ER for not eating and drinking well for several days. Patient was responsive to tactile stimuli only and grimaces and retracts extremities in pain. Previously was speaking in full sentences during last admission on 06/29. Due to major decline in condition, this provider spoke with next of kin, a daughter, Crys. She was amendable to plan of patient being comfort measures only and consulting hospice for inpatient admissions. Hospice [facility] evaluated and accepted the patient into their services. Patient unable to provide HPI due to above. PMSFH Medical History Stiles catheter in place Z97.8 - Presence of other specified devices (ICD-10) Family History Unknown No known health problems Social History Smoking and tobacco status: Current every day smoker Allergies Allergies Allergy/AdvReac Type Severity Reaction Status Date / Time No Known Allergies Allergy Verified 05/04/23 22:45 Current Medications Home Medications acetaminophen 650 mg tablet,extended release 650 mg PO Q6HR PRN pain 05/05/23 [History Confirmed 07/06/23 Last Taken Unknown] aluminum-mag hydroxide-simethicone 200 mg-200 mg-20 mg/5 mL oral susp 10 ml PO Q6H PRN indigestion/gas/heartburn 05/05/23 [History Confirmed 07/06/23 Last Taken Unknown] benztropine 0.5 mg tablet 1 mg PO BID 05/05/23 [History Confirmed 07/06/23 Last Taken 06/26/23 20:00 0.5 mg] bisacodyl 10 mg rectal suppository 10 mg NM PRN PRN constipation 05/05/23 [History Confirmed 07/06/23 Last Taken Unknown] cholecalciferol (vitamin D3) 25 mcg (1,000 unit) tablet 2,000 unit PO DAILY 05/05/23 [History Confirmed 07/06/23 Last Taken 06/26/23 08:00 2,000 unit] famotidine 20 mg tablet 20 mg PO DAILY 05/05/23 [History Confirmed 07/06/23 Last Taken 06/26/23 06:00 20 mg] ipratropium 0.5 mg-albuterol 3 mg (2.5 mg base)/3 mL nebulization soln 3 ml inhalation Q6H PRN shortness of breath or wheezing 05/05/23 [History Confirmed 07/06/23 Last Taken Unknown] loperamide 2 mg capsule (Anti-Diarrheal (loperamide)) 2 mg PO Q2H PRN loose stool 05/05/23 [History Confirmed 07/06/23 Last Taken Unknown] magnesium hydroxide 400 mg/5 mL oral suspension (Milk of Magnesia) 30 ml PO PRN PRN constipation 05/05/23 [History Confirmed 07/06/23 Last Taken Unknown] paroxetine HCl 10 mg tablet 10 mg PO QAM 05/05/23 [History Confirmed 07/06/23 Last Taken 06/26/23 08:00 10 mg] quetiapine 25 mg tablet 25 mg PO .@HS 05/05/23 [History Confirmed 07/06/23 Last Taken 06/26/23 20:00 25 mg] triamcinolone acetonide 0.1 % topical cream 1 applic topical BID 05/05/23 [History Confirmed 07/06/23 Last Taken 06/26/23 20:00 1 applic] mirtazapine 7.5 mg tablet 7.5 mg PO QHS 06/27/23 [History Confirmed 07/06/23 Last Taken 06/26/23 20:00 7.5 mg] tamsulosin 0.4 mg capsule (Flomax) 0.4 mg PO DAILY 06/27/23 [History Confirmed 07/06/23 Last Taken 06/26/23 08:00 0.4 mg] Saccharomyces boulardii 250 mg capsule (Florastor) 250 mg PO BID #60 caps 06/30/23 [Rx Confirmed 07/06/23 Last Taken Unknown] doxycycline monohydrate 100 mg capsule 100 mg PO BID 7 days #14 caps 06/30/23 [Rx Confirmed 07/06/23 Last Taken Unknown] Home Lorazepam (Lorazepam Inj 2 Mg/Ml Vial) 2 mg IVP Q4H PRN PRN Reason: Agitation Morphine Sulfate (Morphine Sulfate 2 Mg/Ml Syringe) 2 mg IVP Q2H [facility] Last Admin: 07/06/23 19:57 Dose: 2 mg Scopolamine HBr (Scopolamine Hydrobromide 1.5 Mg Patch.Td72) 1 patch TD Q72HR [place] Sodium Chloride (0.9% Sodium Chloride 10 Ml Disp.Syrin) 1 syr IVF Q8HR [place] Sodium Chloride (0.9% Sodium Chloride 10 Ml Disp.Syrin) 1 syr IVF PRN PRN PRN Reason: Maintain IV Patency Last Admin: 07/06/23 18:23 Dose: 1 syr Discontinued Medications Morphine Sulfate (Morphine Sulfate 2 Mg/Ml Syringe) 2 mg IVP Q4H [facility] Opioid Naive vs. Tolerant Does Patient Take Opioids?: No Is Patient Opioid Naive?: Yes What is Opioid Naive?: *Opioid Naive implies the patient is not already taking opioids or not chronically receiving opioids on a daily basis. *PRN dosing is not "usually" associated with tolerance. *Patients are at higher risk of over-sedation and aspiration. Is Patient Opioid Tolerant?: No What is Opioid Tolerant?: *Opioid Tolerance implies less than the expected response to an opioid. *Acquired tolerance is defined by the patient taking 60mg of oral morphine daily (or equianalgesic dose of another opioid) for 1 week or more. *Often associated with chronic pain. *May take more than usual dose to achieve desired pain control. Physical examination Most Recent Vital Signs: Most Recent Vital Signs Temperature 97.8 F 07/06/23 17:27 Temperature Source Tympanic 07/06/23 17:27 Pulse Rate 100 07/06/23 17:27 Respiratory Rate 16 07/06/23 17:27 Blood Pressure 95/67 07/06/23 17:27 Blood Pressure Mean 76 07/06/23 17:27 Blood Pressure Left Arm 102/64 07/06/23 15:30 Blood Pressure Location Right Arm 07/06/23 17:27 Blood Pressure Position Supine 07/06/23 17:27 O2 Sat by Pulse Oximetry 95 07/06/23 17:27 Oxygen Delivery Method Nasal Cannula 07/06/23 20:00 Oxygen Flow Rate 2 07/06/23 20:00 Height 6 ft 07/06/23 15:30 Weight 124 lb 07/06/23 15:30 Telemetry Heart Rate 76 06/30/23 07:00 Telemetry SPO2 93 06/30/23 01:00 Appearance: Positive Ill-Appearing, Thin and Cachectic Skin: Positive Warm and Other (Stage 2 pressure ulcer to coccyx) HEENT: Positive Normocephalic and PERRLA Neck: Positive Supple Chest/Lungs: Positive Symmetrical With Equal Breath Sounds and Other (course crackles throughout lung davis bilaterally) Heart: Positive RRR and Pulses Normal GI/: Positive Soft, Nontender and Bowel Sounds Hypoactive Musculoskeletal: Positive Not Examined Extremities: Positive Intact Peripheral Pulses Neurological: Positive Sensation Intact and Other (agitated with tactile stimuli, unresponsive to verbal ) Review Statement Review Statement: I have independently reviewed and interpreted the labs/EKGs/imaging that were ordered by the ER provider. I have reviewed all outside records that are available currently in our EMR including imaging/notes/labs from previous visits. Plan Plan: 1. Recurrent aspiration pneumonia 2. Recurrent UTI 3. Dysphagia 4. Dementia Medications: Morphine 2 mg Q2H Ativan 2 mg Q4H prn Scopolamine Q72H DVT Prophylaxis: none, comfort measures Time Spent: Greater than 80 minutes spent with patient, 50% of the time spent with this patient was devoted to counseling and coordination of care. [facility]in minutes spent discussing advance care planning. Disposition: Admit to: Med[facility]surg Inpatient [facility] - [facility] Discussed Plan of Care with Dr. Blaise Beltran. Medications Medication Orders: Medications Ordered Category Date Time Status 0.9 % Sodium Chloride [Saline Flush] Meds 07/06/23 16:23 Active 1 syr IVF PRN PRN 0.9 % Sodium Chloride [Saline Flush] Meds 07/06/23 21:00 Active 1 syr IVF Q8HR Lorazepam [Ativan] Meds 07/06/23 15:40 Active 2 mg IVP Q4H PRN Morphine Sulfate [Morphine 2 mg/ml Syringe] Meds 07/06/23 16:00 Active 2 mg IVP Q2H Scopolamine Hydrobromide [Transderm-Scop 1.5 mg Patch] Meds 07/08/23 09:00 Active 1 patch TD Q72HR
[2023-07-07] MEDS: ATIVAN IVP SCH (10:29)
--- NOTE | 2023-07-07 11:28 | PCM.PROG ---
Date/Time Seen Date Seen by Provider: 07/07/23 Time Seen by Provider: 09:15 Provider [facility] Chief Complaint Chief Complaint: RESP FAILURE, ASPIRATION PNEUMONIA Subjective Subjective: Tachycardic into 120s this am. BP dropping further. Objective Appearance: Positive Ill-Appearing, Thin and Cachectic Chest/Lungs: Positive Symmetrical With Equal Breath Sounds and Rhonci Heart: Positive Pulses Normal and Tachycardia GI/: Positive Soft, Nontender, Bowel Sounds Normal and No Distention Musculoskeletal: Positive Not Examined Neurological: Positive Other (unresponsive to all stimuli at this time) Vital Signs Vital Signs: Vital Signs: Last 24 Hours 07/06/23 15:30 07/06/23 15:30 07/06/23 17:27 Temperature 97.2 F L 97.8 F Temperature Source Temporal Artery Scan Tympanic Pulse Rate 88 100 Respiratory Rate 18 16 Blood Pressure 95/67 Blood Pressure Mean 76 Blood Pressure Left Arm 102/64 Blood Pressure Location Right Arm Blood Pressure Position Supine Supine O2 Sat by Pulse Oximetry 89 L 95 Oxygen Delivery Method Nasal Cannula Nasal Cannula Nasal Cannula Oxygen Flow Rate 2 2 2 Height 6 ft Weight 124 lb 07/06/23 20:00 07/06/23 20:00 07/06/23 22:00 Temperature 97.4 F L Temperature Source Oral Pulse Rate 99 Respiratory Rate 16 Blood Pressure 106/83 Blood Pressure Mean 90 Blood Pressure Left Arm Blood Pressure Location Left Arm Blood Pressure Position Supine O2 Sat by Pulse Oximetry 91 L Oxygen Delivery Method Nasal Cannula Nasal Cannula Nasal Cannula Oxygen Flow Rate 2 2 2 Height Weight 07/07/23 05:04 07/07/23 05:34 07/07/23 08:00 Temperature 97.4 F L Temperature Source Temporal Artery Scan Pulse Rate 121 H Respiratory Rate 16 14 Blood Pressure 71/53 L Blood Pressure Mean 59 Blood Pressure Left Arm Blood Pressure Location Right Arm Blood Pressure Position Supine O2 Sat by Pulse Oximetry 88 L Oxygen Delivery Method Nasal Cannula Nasal Cannula Nasal Cannula Oxygen Flow Rate 2 2 2 Height Weight 07/07/23 09:57 Temperature Temperature Source Pulse Rate Respiratory Rate Blood Pressure Blood Pressure Mean Blood Pressure Left Arm Blood Pressure Location Blood Pressure Position O2 Sat by Pulse Oximetry Oxygen Delivery Method Nasal Cannula Oxygen Flow Rate 2 Height Weight Additional Comments Additional Comments: I have independently reviewed and interpreted the labs/EKGs/imaging ordered during this hospital stay. I have reviewed outside records that are available in our EMR that pertain to medical stay including imaging/notes/labs from previous visits. Active Medications Active Medications: Medications Generic Name Dose Route Start Last Admin Trade Name Freq PRN Reason Stop Dose Admin Lorazepam 2 mg 07/07/23 10:00 07/07/23 10:29 Lorazepam Inj 2 Mg/Ml Vial IVP 2 mg Q2H [place] Administration Morphine Sulfate 2 mg 07/06/23 16:00 07/07/23 10:32 Morphine Sulfate 2 Mg/Ml Syringe IVP 2 mg Q2H [place] Administration Scopolamine HBr 1 patch 07/08/23 09:00 Scopolamine Hydrobromide 1.5 Mg Patch.Td72 TD Q72HR [place] Sodium Chloride 1 syr 07/06/23 21:00 07/07/23 05:20 0.9% Sodium Chloride 10 Ml Disp.Syrin IVF 1 syr Q8HR [place] Administration Sodium Chloride 1 syr 07/06/23 16:23 07/07/23 04:04 0.9% Sodium Chloride 10 Ml Disp.Syrin IVF 1 syr PRN PRN Administration Maintain IV Patency Plan Plan: 1. Recurrent aspiration pneumonia 2. Recurrent UTI 3. Dysphagia 4. Dementia Medications: Morphine 2 mg Q2H Ativan 2 mg Q2H Scopolamine Q72H DVT Prophylaxis: none, comfort measures Review Statement Review Statement: I have personally discussed and reviewed the patient's visit/currently labs/imaging/decision making with Dr. Beltran, my supervising attending. Greater that 50 minutes spent with patient, 50% of the time spent with this patient was devoted to counseling and coordination of care.
[2023-07-08 05:22] VITALS: TEMP 97.1
[2023-07-08 05:39] VITALS: BP 56/36; PULSE 100; RESP 20
[2023-07-08] MEDS: TRANSDERM-SCOP 1.5 MG PATCH TD SCH (08:36)
--- NOTE | 2023-07-08 12:12 | DCSUM ---
Admission Date Admission Date: 07/06/23 Discharge Date Discharge Date: 07/08/23 Admission Diagnosis Admission Diagnosis: 1. Recurrent aspiration pneumonia 2. Recurrent UTI 3. Dysphagia 4. Dementia Discharge Diagnosis Discharge Diagnosis: 1. Recurrent aspiration pneumonia 2. Recurrent UTI 3. Dysphagia 4. Dementia Hospital Provider Hospital Provider: SUN MIXON, [facility] Primary Care Physician Primary Care Physician: BERNADETTE KILGORE Summary of History and Physical Summary of History and Physical: 83 yo male admitted to inpatient following hospitalizations for recurrent aspiration pneumonia and UTI. Patient from local SNF and was sent to ER for not eating and drinking well for several days. Patient was responsive to tactile stimuli only and grimaces and retracts extremities in pain. Previously was speaking in full sentences during last admission on 06/29. Due to major decline in condition, this provider spoke with next of kin, a daughter, Crys. She was amendable to plan of patient being comfort measures only and consulting hospice for inpatient admissions. [facility] evaluated and accepted the patient into their services. Patient unable to provide HPI due to above. Hospital Course Subjective: During course of stay, patient was under the care of [facility]. He was receiving morphine Q2H and initially ativan 2 mg Q4H prn. Yesterday, scheduled ativan routine Q2H. Scopolamine patch for secretions Q72H. Time of 07/08/23 at 0907 Cause of : Cardiopulmonary arrest Auscultated heart sounds for 1 full minute without return. Crys, daughter, notified minutes prior to expiration. Vital Signs: Most Recent Vital Signs Temperature 97.1 F L 07/08/23 05:13 Temperature Source Temporal Artery Scan 07/08/23 05:13 Pulse Rate 100 07/08/23 05:38 Respiratory Rate 20 07/08/23 05:38 Blood Pressure 56/36 L 07/08/23 05:38 Blood Pressure Mean 42 07/08/23 05:38 Blood Pressure Left Arm 102/64 07/06/23 15:30 Blood Pressure Location Right Arm 07/08/23 05:38 Blood Pressure Position Supine 07/08/23 05:38 O2 Sat by Pulse Oximetry 82 L 07/08/23 05:13 Oxygen Delivery Method Nasal Cannula 07/08/23 08:00 Oxygen Flow Rate 2 07/08/23 08:00 Height 6 ft 07/06/23 15:30 Weight 124 lb 07/06/23 15:30 Telemetry Heart Rate 76 06/30/23 07:00 Telemetry SPO2 93 06/30/23 01:00 Discharge Instructions Discharge Planning: Discharge Planning > 40 minutes If patient is discharged with left ventricular systolic dysfunction: NA Discharged with a beta merlene? [] If no, why not? [] Discharged with an david/arb? [] If no, why not? [] Time of 07/08/23 at 0907 Cause of : Cardiopulmonary arrest Discharge Medications: Medications at Discharge (Home Meds & RX) acetaminophen 650 mg tablet,extended release 650 mg PO Q6HR PRN pain 05/05/23 aluminum-mag hydroxide-simethicone 200 mg-200 mg-20 mg/5 mL oral susp 10 ml PO Q6H PRN indigestion/gas/heartburn 05/05/23 benztropine 0.5 mg tablet 1 mg PO BID 05/05/23 bisacodyl 10 mg rectal suppository 10 mg TX PRN PRN constipation 05/05/23 cholecalciferol (vitamin D3) 25 mcg (1,000 unit) tablet 2,000 unit PO DAILY 05/05/23 famotidine 20 mg tablet 20 mg PO DAILY 05/05/23 ipratropium 0.5 mg-albuterol 3 mg (2.5 mg base)/3 mL nebulization soln 3 ml inhalation Q6H PRN shortness of breath or wheezing 05/05/23 loperamide 2 mg capsule (Anti-Diarrheal (loperamide)) 2 mg PO Q2H PRN loose stool 05/05/23 magnesium hydroxide 400 mg/5 mL oral suspension (Milk of Magnesia) 30 ml PO PRN PRN constipation 05/05/23 paroxetine HCl 10 mg tablet 10 mg PO QAM 05/05/23 quetiapine 25 mg tablet 25 mg PO .@HS 05/05/23 triamcinolone acetonide 0.1 % topical cream 1 applic topical BID 05/05/23 mirtazapine 7.5 mg tablet 7.5 mg PO QHS 06/27/23 tamsulosin 0.4 mg capsule (Flomax) 0.4 mg PO DAILY 06/27/23 Saccharomyces boulardii 250 mg capsule (Florastor) 250 mg PO BID #60 caps 06/30/23 doxycycline monohydrate 100 mg capsule 100 mg PO BID 7 days #14 caps 06/30/23 Discharge Plan Discharge Discharge Orders: Discharge Patient (ONCE); Ordered 07/08/23 Ordered By: KRYSTLE MATUTE Patient Disposition: Did you review [place] [facility] for [place] controlled substances?: Not Applicable Discussed opioids are addictive and Narcan is available by prescription or from pharmacy.: No Date/Time: 07/08/23 09:07
== END 2023-07-08 10:55 | disposition expired | DRG 951 ==
LOC: MEDSURG B 15:22
PROVIDERS: ADMIT Hospitalist; ATTEND Nurse Practitioner Family